=== PATIENT | female | born 1990 | race Caucasian/White ===

== ENCOUNTER 2018-09-14 16:24 | Outpatient (REF) | payer OTHER, SELFPAY ==
--- NOTE | 2018-09-14 13:00 | PAPFT_PTH ---
PATIENT: Abbie Hernandez LOC: [facility] U#:[id number] AGE/SX: 28/F ROOM: RE09/14/[address]: GOKUL Wiggins : 1990 BED: DIS: 09/14/2018 SPEC #: [id number] RECD: 09/17/18 17:43 STATUS: DEVIKA REAleksandar #: [id number] SONIDO: 09/14/18 13:[address]: Bryanna Horta DEPT: [facility] Cytology RECD BY: Jada Jarrett ENTERED: 09/17/18 17:43 SP TYPE: PAPFT OTHR DR: Octavia Navarro Tissues: 1 - CX/ENDOCX FOR PAP SMEARS Procedures: PAP THIN PREP/[facility] Screening Comments: [id number] (UNSATISFACTORY FOR EVALUATION
[2018-09-17 16:07] LABS: Chlamydia Result Negative; GC Result Negative
== END 2018-09-14 16:44 ==
LOC: LBN 16:24
PROVIDERS: PCP Family Medicine; Visit Provider Nurse Practitioner Family
DX: Z11.3 Encounter for screening for infections with a predominantly sexual mode of transmission (principal); Z12.4 Encounter for screening for malignant neoplasm of cervix; Z11.51 Encounter for screening for human papillomavirus (HPV)
CPT/HCPCS: 87491; 87591; 88142; 87624

== ENCOUNTER 2018-12-19 16:12 | Outpatient (REF) | payer OTHER, SELFPAY ==
--- NOTE | 2018-12-19 15:00 | PAPFT_PTH ---
PATIENT: Abbie Hernandez LOC: [facility] U#:[id number] AGE/SX: 28/F ROOM: RE12/19/[address]: Gretel Dunn NP : 1990 BED: DIS: 12/19/2018 SPEC #: [id number] RECD: 12/19/18 18:05 STATUS: DEVIKA BIANCHI #: [id number] SONIDO: 12/19/18 15:[address]: Gretel Dunn NP DEPT: [facility] Cytology RECD BY: Jada Jarrett ENTERED: 12/19/18 18:06 SP TYPE: PAPFT OTHR DR: Octavia Navarro Tissues: 1 - CX/ENDOCX FOR PAP SMEARS Procedures: PAP THIN PREP/[facility] Screening HPV DNA PROBE Comments: [id number] (CHLAMYDIA/GC)
[2018-12-20 13:27] LABS: Chlamydia Result Negative; GC Result Negative; Specimen Description SEE COMMENTS
== END 2018-12-19 16:32 ==
LOC: LBN 16:12
PROVIDERS: PCP Family Medicine; Visit Provider Nurse Practitioner Women's Health
DX: R31.9 Hematuria, unspecified (principal); Z11.3 Encounter for screening for infections with a predominantly sexual mode of transmission; Z12.4 Encounter for screening for malignant neoplasm of cervix; Z11.51 Encounter for screening for human papillomavirus (HPV)
CPT/HCPCS: 87491; 87591; 88142; 87086; 87624

== ENCOUNTER 2019-04-19 08:03 | Outpatient (REF) | payer OTHER, SELFPAY ==
[2019-04-19 12:42] LABS: Glucose 87 mg/dL (70-100); TSH (W/Ref FT4) 3.14 uIU/mL (0.358-3.74)
== END 2019-04-19 08:23 ==
LOC: NCHCN 08:03
PROVIDERS: PCP Family Medicine; Visit Provider Family Medicine
DX: Z00.00 Encounter for general adult medical examination without abnormal findings (principal); Z13.1 Encounter for screening for diabetes mellitus; E66.9 Obesity, unspecified
CPT/HCPCS: 82947; 84443

== ENCOUNTER 2020-05-18 02:04 | Outpatient (CLI) | payer OTHER, SELFPAY ==
[2020-05-18 10:24] LABS: Hemoglobin A1C 5.3 % (3.8-5.6)
== END 2020-05-18 02:24 ==
PROVIDERS: PCP Family Medicine; Visit Provider Nurse Practitioner Women's Health
DX: R63.5 Abnormal weight gain (principal); E66.9 Obesity, unspecified
CPT/HCPCS: 36415; 83036; 84443

== ENCOUNTER 2022-12-23 12:55 | Outpatient (REF) | payer BC, SELFPAY | END 2022-12-23 12:56 | disposition home or self-care (01) | LOC: NCHCN 12:55 | PROVIDERS: PCP Family Medicine; Visit Provider Physician Assistant | DX: N39.0 Urinary tract infection, site not specified (principal) | CPT/HCPCS: 87086 ==

== ENCOUNTER 2023-05-26 00:07 | Outpatient (CLI) | payer BC, SELFPAY ==
--- NOTE | 2023-05-26 08:15 | DI.MAMMO_ITS ---
Exam(s) MAMMO SCREENING EXAM: MAMMO SCREENING CLINICAL HISTORY: screening,Z12.39. TECHNIQUE: Bilateral full field digital CC and MLO mammographic images were obtained with 3D tomosyn thesis and utilizing computer aided detection (CAD). COMPARISON: None. This is a baseline mammogram on this 33-year-old patient. Family history. FINDINGS: The fibroglandular pattern is predominately fatty. There are no CAD designations There are no spiculated masses nor malignant appearing microcalcification groups. There is no significant architectural distortion nor skin thickening-retraction. IMPRESSION: No radiographic evidence of malignancy. BI-RADS Category 1 - Negative Breast Density - Category A - Almost entirely fatty Breast density Category C or D implies that the patient has dense breast tissue. Dense breast tissue can make it harder to find cancer on a mammogram. Dense breast tissue is also associated with an incr eased risk of breast cancer. This information about the result of the mammogram report was provided to the patient to raise their awareness. Use this report when you speak with the patient about their risks for breast cancer, which includes their family history. At that time, you may recommend additional screening tests (Ultrasoun d or MRI) as these tests may add significant information. A negative radiographic report should not delay biopsy if a dominant or clinically suspicious mass is present. Up to ten percent of cancers are not identified on mammography. A negative report may reinforce clinical impression. Adenosis and dense breasts may obscure an underlying neoplasm. False positive reports average 6 to 10%. Patient will receive a letter notifying them of these results.
== END 2023-05-26 00:27 ==
LOC: DI 00:07
PROVIDERS: PCP Family Medicine; Visit Provider Nurse Practitioner Women's Health
DX: Z12.31 Encounter for screening mammogram for malignant neoplasm of breast (principal); Z80.3 Family history of malignant neoplasm of breast
CPT/HCPCS: 77063; 77067

== ENCOUNTER 2023-08-07 18:38 | Outpatient (REF) | payer BC, SELFPAY ==
[2023-08-07 21:21] LABS: Abs Immature Grans 0.03 10^3/uL (0.0-0.06); Absolute Basophil Count 0.06 10^3/uL (0.0-0.2); Absolute Eosinophil Count 0.19 10^3/uL (0.0-0.7); Absolute Lymphocyte Count 2.09 10^3/uL (1.2-3.4); Absolute Monocyte Count 0.57 10^3/uL (0.1-0.8); Absolute Neutrophil Count 3.66 10^3/uL (1.2-6.7); Basophils % 0.9; Eosinophils % 2.9; HCT 40.4 % (36.0-46.0); HGB 13.2 g/dL (11.2-15.7); Immature Grans % 0.5; Lymphocytes % 31.7; MCH 30.3 pg (27.0-33.0); MCHC 32.7 % (32.0-36.0); MCV 93 fL (80-95); MPV 10.5 fL (8.0-11.0); Monocytes % 8.6; Neutrophils % 55.4; Platelet Count 320 10^3/uL (130-400); RBC 4.36 10^6/uL (3.93-5.22); RDW 12.9 % (11.7-14.6); RDW-SD 44.6 fL
[2023-08-07 21:24] LABS: ESR 28 mm/hr (0-20)
[2023-08-07 21:48] LABS: ALT 31 U/L (14-59); AST 23 U/L (15-37); Albumin 3.8 g/dL (3.4-5.0); Alkaline Phosphatase 101 U/L (46-116); Anion Gap 8.1 mmol/L (3-11); BUN 15 mg/dL (7-18); Bilirubin, Total 0.2 mg/dL (0.2-1.0); CO2 27.9 mmol/L (21.0-32.0); CREATININE 0.8 mg/dL (0.55-1.02); Calcium 10.1 mg/dL (8.5-10.1); Chloride 102 mmol/L (98-107); Estimated GFR 98.48 (mL/min/1.73m2); Glucose 90 mg/dL (74-106); Potassium 3.8 mmol/L (3.5-5.1); Sodium 138 mmol/L (136-145); Total Protein 7.6 g/dL (6.4-8.2)
== END 2023-08-07 18:39 | disposition home or self-care (01) ==
LOC: LBN 18:38
PROVIDERS: PCP Family Medicine; Visit Provider Nurse Practitioner Family
DX: K57.92 Diverticulitis of intestine, part unspecified, without perforation or abscess without bleeding (principal); R70.0 Elevated erythrocyte sedimentation rate
CPT/HCPCS: 80053; 85652; 85025

== ENCOUNTER 2024-04-23 05:11 | Outpatient (CLI) | payer BC, SELFPAY ==
[2024-04-23 13:13] LABS: HCT 39.5 % (36.0-46.0); MCHC 32.9 % (32.0-36.0); MCV 91 fL (80-95); MPV 9.6 fL (8.0-11.0); Platelet Count 307 10^3/uL (130-400); RBC 4.33 10^6/uL (3.93-5.22); RDW 12.9 % (11.7-14.6); RDW-SD 43.2 fL; WBC 6.93 10^3/uL (4.4-10.8)
[2024-04-23 14:28] LABS: ALT 65 U/L (14-59); AST 31 U/L (15-37); Albumin 3.7 g/dL (3.4-5.0); Alkaline Phosphatase 103 U/L (46-116); Anion Gap 10.2 mmol/L (3-11); BUN 11 mg/dL (7-18); Bilirubin, Total 0.3 mg/dL (0.2-1.0); C-Reactive Protein 1.09 mg/dL (<or=0.5); CO2 25.8 mmol/L (21.0-32.0); CREATININE 0.9 mg/dL (0.55-1.02); Chloride 106 mmol/L (98-107); Glucose 89 mg/dL (74-106); Magnesium 1.8 mg/dL (1.8-2.4); Potassium 3.9 mmol/L (3.5-5.1); Sodium 142 mmol/L (136-145); TSH (W/Ref FT4) 1.76 uIU/mL (0.36-3.74)
[2024-04-24 09:24] LABS: IgA 321 mg/dL (85-499); IgG 1018 mg/dL (610-1616)
[2024-04-24 11:41] LABS: Tissue Transglutaminase IgA 7.3 CU (<20.0)
[2024-04-25 12:35] LABS: Tissue Transglutaminase Ab IgG 4.8 U/mL
== END 2024-04-23 05:12 | disposition home or self-care (01) ==
LOC: LBO 05:11
PROVIDERS: PCP Family Medicine; Visit Provider Physician Assistant Medical
DX: K52.9 Noninfective gastroenteritis and colitis, unspecified (principal)
CPT/HCPCS: 36415; 80053; 82533; 82784; 85027; 86364; 83735; 84443; 86140

== ENCOUNTER 2024-05-28 08:06 | Outpatient (REF) | payer BC, SELFPAY ==
--- OUTSIDE RECORDS SUMMARY | 2024-05-28 08:09 | XMS_ITS | Continuity of Care Document ---
Author Organization [facility] Address [address] [place] [address] Care Team Providers Care Rn Camp Name Role Phone Sharon Concepcion Primary Care Physician [facility]counter [facility] Date(s): 10/04/23 - 10/04/[address] [address] Encounter Diagnosis Upper respiratory infection, acute(Discharge Diagnosis) - 10/04/23 Discharge Disposition: Home or Self Care Attending Physician: Maicol Rashid MD Admitting Physician: Maicol Rashid MD Allergies, Adverse Reactions, Alerts No Known Medication Allergies Assessment and Plan Extracted from: Title:Clinical Document Author:Fang Burrell te:10/04/23 Diagnosis: 1. Upper respirat ory infection, acute Comment: Diagnosis: Cough Comment: Functional Status 10/04/23 Family Member Travel History No recent t ravel Recent Travel History No recent travel Other exposure to Infectious Disease Non e Immunizations Given and Recorded Vaccine Date Status Refusal Reason SARS-CoV-2 (COVID-19) mRNA-1273 vaccine 01/20/21 R ecorded SARS-CoV-2 (COVID-19) mRNA-1273 vaccine 12/23/20 R ecorded pneumococcal 23-polyvalent vaccine 02/13/09 Record ed influenza virus vaccine, inactivated 09/25/08 Griffin rded influenza virus vaccine, inactivated 09/24/07 Griffin rded Medications No Known Medications Results Laboratory List Name Date SARS-CoV-2 (COVID-19)/Flu/RSV (GeneXpert ) 10/04/23 Most recent to oldest [Reference Range]: 1 Employed in healthcare? Unknown *NA* (10/04/23 2:00 AM) Symptomatic as defined by CDC? Unknown *NA* (10/04/23 2:00 AM) Hospitalized due to COVID-19? Unknown *NA* (10/04/23 2:00 AM) In ICU? Unknown *NA* (10/04/23 2:00 AM) Group care resident? Unknown *NA* (10/04/23 2:00 AM) status? Unknown *NA* (10/04/23 2:00 AM) SARS-CoV-2(Covid19)PCR(GXpert COVFLURSV) [Negative] Negative (10/04/23 2:00 AM) Flu A (GXpert COVFLURSV) [Negative] Nega tive (10/04/23 2:00 AM) RSV (GXpert COVFLURSV) [Negative] Negati ve (10/04/23 2:00 AM) Flu B (GXpert COVFLURSV) [Negative] Nega tive (10/04/23 2:00 AM) Vital Signs Most recent to oldest [Reference Range]: 1 2 Temperature Tympanic [36.6-38.1 Deg C] 3 6.4 Deg C *LOW* (10/04/23 1:51 AM) Peripheral Pulse Rate [60-100 bpm] 105 b pm *HI* (10/04/23 1:58 AM) 128 bpm *HI* (10/04/23 1:51 AM) Respiratory Rate [12-24 br/min] 20 br/mi n (10/04/23 1:51 AM) Blood Pressure [90-140/60-90 mmHg] 157/9 5mmHg *HI* (10/04/23 1:51 AM) Mean Arterial Pressure, Cuff [70-110 mmH g] 116 mmHg *HI* (10/04/23 1:51 AM) Weight Dosing 120.00 kg (10/04/23 1:56 AM) Weight Estimated 120.00 kg (10/04/23 1:51 AM) Height 165.000 cm (10/04/23 1:56 AM) Height/Length Estimated 165.000 cm (10/04/23 1:51 AM) Social History Social History Type Response Tobacco Never tobacco user T obacco Use:. Sex Female Hospital Discharge Instructions Patient Education 10/04/2023 01:22:13 Upper Respiratory Infection, Adult, Sfrj-cv-Nalr Upper Respiratory Infection, Adult An upper respiratory infection (URI) affects the nose, throat, and upper airways that lead to the lungs. The most common type of URI is often called the common cold. URIs usually get better on their own, without medical treatment. What are the causes? A URI is caused by a germ (virus). You may catch these germs by: ??? Breathing in droplets from an infected person's cough or sneeze. ??? Touching something that has the germ on it (is contaminated) and then touching your mouth, nose, or eyes. What increases the risk? You are more likely to get a URI if: ??? You are very young or very old. ??? You have close contact with others, such as at work, school, or a health care facility. ??? You smoke. ??? You have long-term (chronic) heart or lung disease. ??? You have a weakened disease-fighting system (immune system). ??? You have nasal allergies or asthma. ??? You have a lot of stress. ??? You have poor nutrition. What are the signs or symptoms? Runny or stuffy (congested) nose. ??? Cough. ??? Sneezing. ??? Sore throat. ??? Headache. ??? Feeling tired (fatigue). ??? Fever. ??? Not wanting to eat as much as usual. ??? Pain in your forehead, behind your eyes, and over your cheekbones (sinus pain). ??? Muscle aches. ??? Redness or irritation of the eyes. ??? Pressure in the ears or face. How is this treated? URIs usually get better on their own within 7???10 days. Medicines cannot cure URIs, but your doctor may recommend certain medicines to help relieve symptoms, such as: ??? Guob-wta-mhlbhre cold medicines. ??? Medicines to reduce coughing (cough suppressants). Coughing is a type of defense against infection that helps to clear the nose, throat, windpipe, and lungs (respiratory system). Take these medicines only as told by your doctor. ??? Medicines to lower your fever. Follow these instructions at home: Activity ??? Rest as needed. ??? If you have a fever, stay home from work or school until your fever is gone, or until your doctor says you may return to work or school. ??? You should stay home until you cannot spread the infection anymore (you are not contagious). ??? Your doctor may have you wear a face mask so you have less risk of spreading the infection. Relieving symptoms ??? Rinse your mouth often with salt water. To make salt water, dissolve ?1 tsp (3???6 g) of salt in 1 cup (237 mL) of warm water. ??? Use a cool-mist humidifier to add moisture to the air. This can help you breathe more easily. Eating and drinking ??? Drink enough fluid to keep your pee (urine) pale yellow. ??? Eat soups and other clear broths. General instructions ??? Take diwt-cxt-ycoakvo and prescription medicines only as told by your doctor. ??? Do not smoke or use any products that contain nicotine or tobacco. If you need help quitting, ask your doctor. ??? Avoid being where people are smoking (avoid secondhand smoke). ??? Stay up to date on all your shots (immunizations), and get the flu shot every year. ??? Keep all follow-up visits. How to prevent the spread of infection to others ??? Wash your hands with soap and water for at least 20 seconds. If you cannot use soap and water, use hand scrap iron cutter. ??? Avoid touching your mouth, face, eyes, or nose. ??? Cough or sneeze into a tissue or your sleeve or elbow. Do not cough or sneeze into your hand orinto the air. Contact a doctor if: ??? You are getting worse, not better. ??? You have any of these: ??? A fever or chills. ??? Brown or red mucus in your nose. ??? Yellow or brown fluid (discharge)coming from your nose. ??? Pain in your face, especially when you bend forward. ??? Swollen neck glands. ??? Pain when you swallow. ??? White areas in the back of your throat. Get help right away if: ??? You have shortness of breath that gets worse. ??? You have very bad or constant: ??? Headache. ??? Ear pain. ??? Pain in your forehead, behind your eyes, and over your cheekbones (sinus pain). ??? Chest pain. ??? You have long-lasting (chronic) lung disease along with any of these: ??? Making high-pitched whistling sounds when you breathe, most often when you breathe out (wheezing). ??? Long-lasting cough (more than 14 days). ??? Coughing up blood. ??? A change in your usual mucus. ??? You have a stiff neck. ??? You have changes in your: ??? Vision. ??? Hearing. ??? Thinking. ??? Mood. These symptoms may be an emergency. Get help right away. Call 911. ??? Do not wait to see if the symptoms will go away. ??? Do not drive yourself to the hospital. Summary ??? An upper respiratory infection (URI) is caused by a germ (virus). The most common type of URI is often called the common cold. ??? URIs usually get better within 7???10 days. ??? Take oaie-vew-haigofx and prescription medicines only as told by your doctor. This information is not intended to replace advice given to you by your health care provider. Make sure you discuss any questions you have with your health care provider. Document Revised: 06/01/2022 Document Reviewed: 06/01/2022 [employer] Patient Education ?? 2022 [employer]. Follow Up Care 10/04/2023 01:51:11 With:Follow up with primary care provider Address: When:3 to 5 days only if needed Physician Emergency department Note * Maicol Rashid MD: PERFORM Event Display: ED Note Physician Authored Date: [id number] SHAHRIAR MURRAY :1990 Age:33 years Sex:Female Visit Date:10/04/2023 Basic Information Time Seen: Maicol Rashid MD / 10/04/2023 01:51 Chief Complaint PT came to ED with C/O cough and nasal congestion for 2 weeks. PT states tonight she had trouble taking a deep breath History Of Present Illness: Patient has had cold symptoms for several weeks and is now??having more into her chest.?? A lot of coughing and feeling short of breath. ??Used her inhaler as she has asthma but did not feel it helps. ??Has not felt she has had a fever. ??No vomiting or diarrhea. ??No sinus pain currently. Review of Systems: No fever or rash. ??No headache. Physical Exam Vitals & Measurements T:??36.4?C ??(Tympanic)?? HR:??105??(Peripheral)?? RR:??20?? BP:??157/95?? SpO2:??98%?? HT:??165.000??cm?? WT:??120.00??kg??(Estimated)?? O2 Therapy:??Room air?? Alert cooperative healthy-appearing overweight??frequent wet cough. ??HEENT normocephalic atraumatic. ??Extraocular movements are intact no conjunctivitis. ??Left TM and canal are clear. ??Right is occluded with cerumen.?? Nose??is clear oropharynx is clear neck is supple without lymphadenopathy.??Lungs have some scattered rhonchi??but no wheezing good airflow. ??No retractions??and no prolongedexpiratory phase.?? Abdomen soft nontender nondistended. ??Skin warm and dry.?? Normal neurologicalexam. Medical Decision Making: Chest 2 view as read by me shows no acute finding ?? COVID flu RSV swab pending.?? Patient may??continue to take ezvl-upj-wviikqy cold medicines as desired.?? No evidence for asthma??attack currently. Procedure No Qualifying Data Assessment/Plan 1.??Upper respiratory infection, acute??J06.9 Orders: SARS-CoV-2 (COVID-19)/Flu/RSV (GeneXpert), Nasal Swab, Stat Collect, 10/04/23 1:57:00 EST, Once, Nurse collect, Print Label, Unknown, Unknown, Unknown, Unknown, Unknown, Unknown XR Chest 2 Views, 10/04/23 1:57:00 EST, Stat, Reason: dyspnea, Transport Mode: Stretcher, Exam to be performed outside organization? Patient Education Upper Respiratory Infection, Adult, Sywe-hz-Asjz Follow Up With When Contact Information Follow up with primary care provider Within 3 to 5 days, only if needed Additional Instructions: Problem List/Past Medical History Ongoing Morbid obesity Historical No qualifying data Allergies No Known Medication Allergies Social History Alcohol Never Electronic Cigarette/Vaping Electronic Cigarette Use: Never. Substance Use Never Tobacco Never tobacco user Tobacco Use:. Electronically Signed on 10/04/23 02:23 AM Maicol Rashid MD Emergency department Discharge instructions * Maicol Rashid MD: PERFORM Event Display: ED Discharge Information Authored Date: [id number] FER MURRAYGRECIA Iglesias :1990 Age:33 years Sex:Female Visit Date:10/04/2023 Discharge Instructions We would like to thank you for allowing us to assist you with your healthcare needs. The following includes patient education materials and information regarding your injury/illness. Diagnosis from Today's Visit Upper respiratory infection, acute Discharge Vitals Temperature??(Tympanic) 97.5 ??F (36.4 ??C) Heart Rate??(Peripheral) 105 Respiratory Rate?? 20 Blood Pressure?? 157/95?? Height?? 64.96 in (165.000 cm) Weight??(Estimated) 264.60 lb (120.00 kg) Allergies No Known Medication Allergies What to Do Next You Need to Schedule the Following Appointments Follow Up with??Follow up with primary care provider When:??Within 3 to 5 days, only if needed You were treated today on an emergency basis; it may be long to contact your primary care provider to notify them of your visit today. You may have been referred to your regular doctor or a specialist, please follow up as instructed. If your condition worsens or you can't get in to see the doctor, contact the Emergency Department. Education Materials Upper Respiratory Infection, Adult An upper respiratory infection (URI) affects the nose, throat, and upper airways that lead to the lungs. The most common type of URI is often called the common cold. URIs usually get better on their own, without medical treatment. What are the causes? A URI is caused by a germ (virus). You may catch these germs by: ? Breathing in droplets from an infected person's cough or sneeze. ? Touching something that has the germ on it (is contaminated) and then touching your mouth, nose, oreyes. What increases the risk? You are more likely to get a URI if: ? You are very young or very old. ? You have close contact with others, such as at work, school, or a health care facility. ? You smoke. ? You have long-term (chronic) heart or lung disease. ? You have a weakened disease-fighting system (immune system). ? You have nasal allergies or asthma. ? You have a lot of stress. ? You have poor nutrition. What are the signs or symptoms? Runny or stuffy (congested) nose. ? Cough. ? Sneezing. ? Sore throat. ? Headache. ? Feeling tired (fatigue). ? Fever. ? Not wanting to eat as much as usual. ? Pain in your forehead, behind your eyes, and over your cheekbones (sinus pain). ? Muscle aches. ? Redness or irritation of the eyes. ? Pressure in the ears or face. How is this treated? URIs usually get better on their own within 7???10 days. Medicines cannot cure URIs, but your doctor may recommend certain medicines to help relieve symptoms, such as: ? Hixi-iex-ffbxkqw cold medicines. ? Medicines to reduce coughing (cough suppressants). Coughing is a type of defense against infection that helps to clear the nose, throat, windpipe, and lungs (respiratory system). Take these medicinesonly as told by your doctor. ? Medicines to lower your fever. Follow these instructions at home: Activity ? Rest as needed. ? If you have a fever, stay home from work or school until your fever is gone, or until your doctor says you may return to work or school. ? You should stay home until you cannot spread the infection anymore (you are not contagious). ? Your doctor may have you wear a face mask so you have less risk of spreading the infection. Relieving symptoms ? Rinse your mouth often with salt water. To make salt water, dissolve ?1 tsp (3???6 g) of salt in 1 cup (237 mL) of warm water. ? Use a cool-mist humidifier to add moisture to the air. This can help you breathe more easily. Eating and drinking ? Drink enough fluid to keep your pee (urine) pale yellow. ? Eat soups and other clear broths. General instructions ? Take ljux-bja-xzaqtec and prescription medicines only as told by your doctor. ? Do not smoke or use any products that contain nicotine or tobacco. If you need help quitting, ask your doctor. ? Avoid being where people are smoking (avoid secondhand smoke). ? Stay up to date on all your shots (immunizations), and get the flu shot every year. ? Keep all follow-up visits. How to prevent the spread of infection to others ? Wash your hands with soap and water for at least 20 seconds. If you cannot use soap and water, use hand scrap iron cutter. ? Avoid touching your mouth, face, eyes, or nose. ? Cough or sneeze into a tissue or your sleeve or elbow. Do not cough or sneeze into your hand or into the air. Contact a doctor if: ? You are getting worse, not better. ? You have any of these: ? A fever or chills. ? Brown or red mucus in your nose. ? Yellow or brown fluid (discharge)coming from your nose. ? Pain in your face, especially when you bend forward. ? Swollen neck glands. ? Pain when you swallow. ? White areas in the back of your throat. Get help right away if: ? You have shortness of breath that gets worse. ? You have very bad or constant: ? Headache. ? Ear pain. ? Pain in your forehead, behind your eyes, and over your cheekbones (sinus pain). ? Chest pain. ? You have long-lasting (chronic) lung disease along with any of these: ? Making high-pitched whistling sounds when you breathe, most often when you breathe out (wheezing). ? Long-lasting cough (more than 14 days). ? Coughing up blood. ? A change in your usual mucus. ? You have a stiff neck. ? You have changes in your: ? Vision. ? Hearing. ? Thinking. ? Mood. These symptoms may be an emergency. Get help right away. Call 911. ? Do not wait to see if the symptoms will go away. ? Do not drive yourself to the hospital. Summary ? An upper respiratory infection (URI) is caused by a germ (virus). The most common type of URI is often called the common cold. ? URIs usually get better within 7???10 days. ? Take vhzx-axr-kttoqdh and prescription medicines only as told by your doctor. This information is not intended to replace advice given to you by your health care provider. Make sure you discuss any questions you have with your health care provider. Document Revised: 06/01/2022 Document Reviewed: 06/01/2022 [employer] Patient Education ?? 2022 [employer] Patient/Project Financial Analyst Signature Patient Name:SHAHRIAR MURRAY I have received this information and my questions have been answered. Patient/Project Financial Analyst Name: Patient/Project Financial Analyst Signature: Relationship to Patient: Witness Name/Signature: Date: Electronically Signed on: 10/04/2023 02:23 ESTSigned by:PMN Discharge summary * Fang Burrell: PERFORM Event Display: Discharge Note Authored Date: * Fang Burrell: PERFORM Event Display: Discharge Note Authored Date: Diagnosis: 1. Upper respiratory infection, acute Comment: Diagnosis: Cough Comment: Electronically Signed on 10/04/23 07:17 AM Fang Burrell Patient Care team information Care Team Personnel Name: Sharon Concepcion PA-C Position: PowerChart View Only Member Role: Informed Provider Address: Address: [facility] [address] [place] [address]- [place] Name: Korey Maldonado RN Position: Nurse Member Role: ED Nurse Name: Maicol Rashid MD Position: Physician Member Role: Attending Physician Address: Address: [address] Care Team Related Persons Name: VALENTINA GAGE JR Address: Home [address] [place], [place] [id number] Address: Mailing [address] [place] [phone] Name: TACO GAGE Address: [address] [phone] Name: MILTON MURRAY
--- OUTSIDE RECORDS SUMMARY | 2024-05-28 08:09 | XMS_ITS | Clinical Summary ---
Author Organization [facility] Address [address] [place] [address] Care Team Providers Care English Division Chair Name Role Phone Unknown, Provider Primary Care Provider Encounters Date Type Department Care Team Description 04/23/2024 Lab Requisition [facility] Pathology & Laboratory [address] [address] Outr Resulting Lab, Provider 04/23/2024 Lab Requisition [facility] Pathology & Laboratory [address] [address] Outr Resulting Lab, Provider from Last 3 Months Social History Tobacco Use Types Packs/Day Years Used Date Smoking Tobacco: Never Assessed Sex and Gender Information Value Date Recorded Sex Assigned at Not on file Gender Identity Not on file Sexual Orientation Not on file Plan of Treatment Health Maintenance Due Date Last Done Comments Hepatitis C Screen 1990 Hepatitis B Vaccine (1 of 3 - 19+ 3-dose series) 05/21 COVID-19 Vaccine ( season) 2023 Procedures Procedure Name Priority Date/Time Associated Diagnosis Comments IGA Routine 04/23/2024 13:00 EDT IGG Routine 04/23/2024 13:00 EDT CORTISOL Routine 04/23/2024 13:00 EDT TISSUE TRANSGLUTAMINASE ANTIBODY, IGA Routine 04/23/2024 13:00 EDT from Last 3 Months Results * TISSUE TRANSGLUTAMINASE ANTIBODY, IGA (04/23/2024 13:00 EDT) Tissue Transglutaminase Antibody, IgA 7.3 <20.0 CU 04/24/2024 11:36 EDT [facility] Comment: Negative: <20.0 CU Weak Positive: 20.0-30.0 CU Positive: >30.0 CU Results were obtained with the [employer] Flash h-tTG IgA chemiluminescent immunoassay. Values obtained with different manufacturers' assay methods may not be used interchangeably. Blood VENOUS BLOOD / Unknown 04/23/2024 13:00 EDT 04/23/2024 21:48 EDT Provider Outr Resulting Lab IMMUNOLOGY A ND SEROLOGY ORDERABLES Performing Organization Address [facility]/ZIP Co de Phone Number [facility] [address] [place] [id number] * IGA (04/23/2024 13:00 EDT) IgA 321 85 - 499 mg/dL 04/24/2024 9:18 EDT [facility] Blood VENOUS BLOOD / Unknown 04/23/2024 13:00 EDT 04/23/2024 21:51 EDT Provider Outr Resulting Lab CHEMISTRY & BLOOD GAS ORDERABLES Performing Organization Address [facility] Co de Phone Number [facility] [address] [place] [phone] * IGG (04/23/2024 13:00 EDT) IgG 1,018 610 - 1,616 mg/dL 04/24/2024 9:18 EDT [facility] Blood VENOUS BLOOD / Unknown 04/23/2024 13:00 EDT 04/23/2024 21:51 EDT Provider Outr Resulting Lab CHEMISTRY & BLOOD GAS ORDERABLES Performing Organization Address [facility] Co de Phone Number [facility] [address] [place] [phone] * CORTISOL (04/23/2024 13:00 EDT) Cortisol 5 See Note ug/dL 04/23/2024 22:37 EDT [facility] Comment: NOTE: Reference Ranges (from OCD IFU): Collected Before 10:00 AM: ??4 - 23 ug/dL Collected After 5:00 PM: ?2 - 14 ug/dL The results of this assay can be falsely elevated due to the consumption of Biotin. Blood VENOUS BLOOD / Unknown 04/23/2024 13:00 EDT 04/23/2024 21:48 EDT Provider Outr Resulting Lab CHEMISTRY & BLOOD GAS ORDERABLES [facility] [address] [place] [address] from Last 3 Months Care Teams English Division Chair Relationship Specialty Start Date End Date Unknown, Provider, PCP - General 09/20/15
--- OUTSIDE RECORDS SUMMARY | 2024-05-28 08:09 | XMS_ITS | Referral Summary ---
Author Organization [facility] Address [address] [place] [address] Care Team Providers Care Ward Maid Name Role Phone Unknown, Provider Primary Care Provider Encounters Date Type Department Care Team Description 04/23/2024 Lab Requisition [facility] Pathology & Laboratory [address] [address] Outr Resulting Lab, Provider 04/23/2024 Lab Requisition [facility] Pathology & Laboratory [address] [address] Outr Resulting Lab, Provider from Last 3 Months Social History Tobacco Use Types Packs/Day Years Used Date Smoking Tobacco: Never Assessed Sex and Gender Information Value Date Recorded Sex Assigned at Not on file Gender Identity Not on file Sexual Orientation Not on file Plan of Treatment Not on file Procedures Procedure Name Priority Date/Time Associated Diagnosis Comments IGA Routine 04/23/2024 13:00 EDT IGG Routine 04/23/2024 13:00 EDT CORTISOL Routine 04/23/2024 13:00 EDT TISSUE TRANSGLUTAMINASE ANTIBODY, IGA Routine 04/23/2024 13:00 EDT from Last 3 Months Results * TISSUE TRANSGLUTAMINASE ANTIBODY, IGA (04/23/2024 13:00 EDT) Tissue Transglutaminase Antibody, IgA 7.3 <20.0 CU 04/24/2024 11:36 EDT [facility] Comment: Negative: <20.0 CU Weak Positive: 20.0-30.0 CU Positive: >30.0 CU Results were obtained with the [employer] Flash h-tTG IgA chemiluminescent immunoassay. Values obtained with different manufacturers' assay methods may not be used interchangeably. Blood VENOUS BLOOD / Unknown 04/23/2024 13:00 EDT 04/23/2024 21:48 EDT Provider Outr Resulting Lab IMMUNOLOGY A ND SEROLOGY ORDERABLES Performing Organization Address [facility]/ZIP Co de Phone Number [facility] [address] [place] [address] * IGA (04/23/2024 13:00 EDT) [facility] IgA 321 85 - 499 mg/dL 04/24/2024 9:18 EDT [facility] Blood VENOUS BLOOD / Unknown 04/23/2024 13:00 EDT 04/23/2024 21:51 EDT Provider Outr Resulting Lab CHEMISTRY & BLOOD GAS ORDERABLES Performing Organization Address [facility] Co de Phone Number [facility] [address] [place] [address] * IGG (04/23/2024 13:00 EDT) [facility] IgG 1,018 610 - 1,616 mg/dL 04/24/2024 9:18 EDT [facility] Blood VENOUS BLOOD / Unknown 04/23/2024 13:00 EDT 04/23/2024 21:51 EDT Provider Outr Resulting Lab CHEMISTRY & BLOOD GAS ORDERABLES Performing Organization Address [facility] Co de Phone Number [facility] [address], [place] [phone] * CORTISOL (04/23/2024 13:00 EDT) Pathologist [facility] Cortisol 5 See Note ug/dL 04/23/2024 22:37 EDT [facility] Comment: NOTE: Reference Ranges (from OCD IFU): Collected Before 10:00 AM: ??4 - 23 ug/dL Collected After 5:00 PM: ?2 - 14 ug/dL The results of this assay can be falsely elevated due to the consumption of Biotin. Blood VENOUS BLOOD / Unknown 04/23/2024 13:00 EDT 04/23/2024 21:48 EDT Provider Outr Resulting Lab CHEMISTRY & BLOOD GAS ORDERABLES [facility] [address] [place] [address] from Last 3 Months Care Teams Ward Maid Relationship Specialty Start Date End Date Unknown, Provider, PCP - General 09/20/15
--- OUTSIDE RECORDS SUMMARY | 2024-05-28 08:10 | XMS_ITS | Encounter Summary ---
Author Organization [facility] [place] [place] [address] Care Team Providers Care Laborer Vegetable Farm Name Role Phone Octavia Navarro MD Primary Care Provider [phone] Encounter Details Date Type Department Care Team (Late st Contact Info) Description 03/11/2015 External Results [place] [phone] Krystle Avila AUD [facility] [place] [address] Social History Tobacco Use Types Packs/Day Years Used Date Smoking Tobacco: Never Assessed Sex and Gender Information Value Date Recorded Sex Assigned at Not on file Gender Identity Not on file Sexual Orientation Not on file documented as of this encounter Plan of Treatment Upcoming Encounters Date Type Department Care Team (Latest Contact Info) Description 06/03/2024 12:00 PM EDT Hospital Encounter Operating Room Jo[address] [place] [phone] Constanza Douglass MD [facility] [place] [address] 06/03/2024 12:00 PM EDT - 06/03/2024 12:45 PM EDT Surgery Operating Room Joanada[address] [place] [phone] Constanza Douglass MD [facility] [place] [address] COLONOSCOPY, DIAGNOSTIC (WRVU 3.26) Scheduled Procedures Name Priority Associated Diagnoses Date/Ti me COLONOSCOPY, DIAGNOSTIC (WRVU 3.26) Chronic diarrhea Screen for colon cancer Adenoma of colon 06/03/2024 12:00 PM EDT documented as of this encounter Procedures Procedure Name Priority Date/Time Associated Diagnosis Comments AUDIOLOGY SCAN Routine 03/09/2015 documented in this encounter Results * Scan Doc: Audiology (03/09/2015) Krystle Avila AUD MEDIA MGR SCAN EXT ORDR/RSLT documented in this encounter Visit Diagnoses Not on filedocumented in this encounter Care Teams Laborer [employer]able Farm Relationship Specialty Start Date End Date Octavia Navarro MD [facility] [address] [place] [address] PCP - General 02/27/15 03/31/24 documented as of this encounter
--- OUTSIDE RECORDS SUMMARY | 2024-05-28 08:10 | XMS_ITS | Encounter Summary ---
Author Organization Health system Address [address] [place] [address] Care Team Providers Care Spouting Installer Name Role Phone Unavailable Primary Care Provider Unavailabl e Encounter Details Date Type Department Care Team (Late st Contact Info) Description 02/13/2013 Results Only [facility] - [facility] ([facility] [address] [place], [place] [phone] Octavia Mike MD [address] [phone] Social History Tobacco Use Types Packs/Day Years Used Date Smoking Tobacco: Never Assessed Sex and Gender Information Value Date Recorded Sex Assigned at Not on file Gender Identity Not on file Sexual Orientation Not on file documented as of this encounter Plan of Treatment Not on file documented as of this encounter Procedures Procedure Name Priority Date/Time Associated Diagnosis Comments PAP TEST- RESULT ONLY Routine 02/13/2013 0:00 EDT documented in this encounter Results * PAP TEST- RESULT ONLY (02/13/2013 0:00 EDT) Pathology Report: CYTOPATHOLOGY REPORT Reports generated via electronic interface contain original data; however they are lacking the format of the original report. Caution should be taken when reading/interpreti ng unformatted reports. Name: ? ABBIE HERNANDEZ ? Accession #: ? [id number] : ? 1990 (Age: 22) ??F ?Collect Date: ? 02/13/2013 Location: ? [facility] ? Receive Date: ? 02/15/2013 Provider: ?OCTAVIA MIKE MD Copy to: ? Specimen/Source: ?Pap Test, Cervix/Endocervix, ThinPrep Imaging System with manual evaluation Last Menstrual Period: ? 12/2012 unknown Menstrual/Pregnanc y Status: ? Irregular: periods ? SPECIMEN ADEQUACY ? Unsatisfactory for Evaluation, - insufficient numbers of squamous epithelial cells (less than 10% of expected cellularity) GENERAL CATEGORIZATION ? Specimen processed and examined, but unsatisfactory for evaluation of epithelial abnormality. Recommend repeat Pap test or further follow up, as clinically indicated. ? Document reviewed and electronically signed by: ? Katia Coker, CT(ASCP) ? Report Date: ??02/20/2013 13:44 End of Report [facility] 02/13/2013 02/15/2013 Octavia Mike MD PATHOLOGY ORDERABLES Performing Organization Address City/State/[facility] Co de Phone Number [facility] [address] [place] [address] documented in this encounter Visit Diagnoses Not on filedocumented in this encounter
--- OUTSIDE RECORDS SUMMARY | 2024-05-28 08:10 | XMS_ITS | Encounter Summary ---
Author Organization [facility] Address [facility] [place] [address] Care Team Providers Care Diamond Saw Operator Name Role Phone Sharon Concepcion Primary Care Provider + [phone] Reason for Visit * Consultation (Routine) - Authorized Specialty Diagnoses / Procedures Referred By Contac t Referred To Contact Gastroenterology Diagnoses Diverticulosis of intestine without perforation or abscess without bleeding Irritable bowel syndrome without diarrhea Sharon Concepcion PA [address] [place] [id number] [facility] [address] [place] [address] Referral ID Status Reason Start Date Expiration Date Visits Requested Visits Authorized [id number] Authorized Consult, Test & Treat PCP Updated and/or Approved 03/25/2024 09/25/2024 6 6 Encounter Details Date Type Department Care Team (Latest Contact Info) Description 04/16/2024 3:00 PM EDT TH Visit (TeleHealth) [place] [address] Gunjan Jennings PA [facility] [place] [address] Chronic diarrhea (Primary Dx); Diverticulitis of large intestine with perforation without bleeding; Left sided abdominal pain; Screen for colon cancer; Adenoma of colon Social History Tobacco Use Types Packs/Day Years Used Date Smoking Tobacco: Former Cigarettes Smokeless Tobacco: Never Tobacco Cessation:Counseling Given: Not Answered Sex and Gender Information Value Date Recorded Sex Assigned at Not on file Gender Identity Not on file Sexual Orientation Not on file documented as of this encounter Patient Instructions * Patient Instructions* Gunjan Jennings PA - 04/16/2024 3:00 PM EDT Blood work and stool studies a [facility] at your convenience - Please let us know when these are completed so we can request results Colonoscopy due in about 3 months - For procedure scheduling please call [phone]. - Schedule follow-up clinic visit with me (either in-person or telemedicine) about 2-4 weeks after these tests to review results. In the interim, I recommend the following to try and manage her symptoms while the above tests are being completed: Healthy Bowel Habits 1. Eat all of your meals and snacks at a predictable time each day. The bowel functions best when food is introduced at the same regular intervals. 2. Large meals can be harder for the system to digest - try eating 3-6 smaller meals throughout theday, rather than 1-2 huge meals. 3. Breakfast is the most important meal involved in bowel stimulation. Make sure you eat breakfast every day. 4. Make sure you are getting enough fiber in your system - either with high fiber foods or with fiber supplementation. 5. Keep caffeine to a minimum. Caffeine is a diuretic drawing fluid from your colon. 6. Exercise daily. Exercise increases colonic transit time. Bowel function is helped most when exercise is at a consistent daily time. 7. Stay hydrated with water or other non-caffeinated beverages free of sugar or artifical sugar. Fluid intake goal is ~6-8 glasses/day (caffeine and alcohol count as minus one in calculation). 8. Avoid or limit processed foods, foods high in added sugar, artificial sweeteners, fast foods andtrans fats. 9. Be sure to include prebiotic (banana, cocoa, eggplant, flaxseed, garlic, honey, onion, peas, whole grains) and probiotic foods (fermented meats, fermented vegs, kimchi, kombucha, miso, sauerkraut,plain yogurt without sugar added) in your diet. 10. Cut down on tobacco use and alcohol use - ideally, try to avoid these altogether 11. If abdominal bloating is an issue for you, try not to swallow air. Do not drink through a straw, gulp your food, or chew gum. Avoid carbonated beverages, chewing gum, and sucking on hard candies. Fiber The majority of Americans are not getting enough fiber. Fiber helps to form solid/soft stools that are easy to pass. It also helps to maintain a healthy bacterial balance in the intestines. General goal is 30 g fiber/day - some patients may require more or less. Fiber can be from multipledietary sources but generally supplementation is helpful. I prefer psyllium fiber supplements such as Metamucil (gummy or powder formulations are both good). Some patients prefer Benefiber (which is a wheat- based fiber). If you are gluten-free, some of our GF patients have responded well to [employer]'s Organic Psyllium Husk (on [employer]). Start with a low dose and increase dosing as tolerated (???start low and go slow?? ) Specifically I would recommend starting Metamucil at a low dosage such as one teaspoon a day for one week then gradually increasing by one teaspoon per week until no further benefit with increasing dosage is achieved. Most patients take between 2 and 6 teaspoons per day. It is important to stay well-hydrated when using fiber supplements. Fluid intake goal is ~6 glasses/day (caffeine and alcohol count as minus one in calculation). Some patients may get bloating when they start a fiber supplement. This generally goes away after 1-2 weeks of daily therapy. Try backing off to a lower dose or trying an alternate version (such as sweetener-free Metamucil or Citrucel) IBGard: I recommend trying over the counter IBGard - a peppermint oil supplement that helps to coat and soothe the lining of the intestine. Take as directed - I recommend 1-2 capsules daily or as needed. documented in this encounter Progress Notes * Gunjan Jennings PA - 04/16/2024 3:00 PM EDT Adult Gastroenterology New Patient Note Patient: Abbie Hernandez : 1990 Date of Service: 04/16/2024 Referring Provider: Sharon Concepcion Primary Care Provider: DAKOTA Ortega HPI History of present illness provided by patient and per personal review of EMR. Abbie Hernandez is a 33 y.o. female with a PMH significant for anxiety, asthma, and a PSH including appy (2008). Has had issues with stomach for years. Chronic diarrhea. At baseline, multiple BM daily. Urgency after eating. Some known food triggers - corn. However will often eat the same thing and sometime will have symptoms and sometimes not. Stool can be yellowish or greasy looking . Never black/white. Has not seen blood in the stool/on toilet paper. 3 years ago - hospitalized with diverticulitis and microtear. Dx on CT. Tx with abx. Multiple flares over the past year, one requiring abx and the other not. Last flare 2 weeks ago (noabx). Not dx with CT. Excruciating L sided pain. Fever. Will use Tylenol/ibuprofen, ADAT. Occasional GERD Nausea assd with Postprandial bloating Eczema earlier this year. Fatigue Has tried to identify food triggers but not tried a specific elimination diet. Current weight 260 lb. Hovers around this area. Taking magnesium supplement. Hx of borderline low TSH - not checked recently Hx childbirth - vaginal delivery +FH of GERD, diverticulitis. Possible CRC in MGF Former smoker. No vaping/nicotine. Medications Tried: Prior Testin06/2021 colonoscopy: 1 cm transverse SSA, diverticulosis 05/2021 CT A/P w contrast - diverticulitis with microperforation Subjective No past medical history on file. There are no problems to display for this patient. Current Outpatient Medications Medication Sig Dispense Refill citalopram (CeleXA) 40 mg tablet Take 1 tablet by mouth Daily at Noon. buPROPion XL (Wellbutrin XL) 150 mg XL 24 hr tablet Take 150 mg by mouth every morning. No current facility-administered medications for this visit. Not on File family history is not on file. Social History Tobacco Use Smoking status: Former Types: Cigarettes Smokeless tobacco: Never Review of Systems Constitutional: Positive for fatigue. Negative for unexpected weight change. Skin: Positive for rash. Neurological: Negative for headaches. I have reviewed 10+ systems with the patient. ROS is negative except for findings above and what ismentioned in HPI. Objective Physical Exam Constitutional: Appearance: Normal appearance. HENT: Head: Normocephalic and atraumatic. Nose: Nose normal. Eyes: Extraocular Movements: Extraocular movements intact. Pulmonary: Effort: Pulmonary effort is normal. Skin: Coloration: Skin is not jaundiced. Neurological: General: No focal deficit present. Mental Status: She is oriented to person, place, and time. Psychiatric: Mood and Affect: Mood normal. Behavior: Behavior normal. There were no vitals taken for this visit. Wt Readings from Last 3 Encounters: No data found for Wt There is no height or weight on file to calculate BMI. Laboratory results: CBC: No results found for: WBC, HGB, HCT, PLATELET LFTs: No results found for: ALKPHOS, BILITOT, BILIDIR, BILIINDIRECT, PROT, ALBUMIN, ALT, AST, GGT LIPASE: No results found for: LIPASE IRON STUDIES: No results found for: IRON, TIBC, FERRITIN Vitamin Studies: No results found for: [id number], VITAMIND A1c:No results found for: HA1C Thyroid: No results found for: TSH, K0SHBBB, TT4, THYROIDAB Celiac Studies: No results found for: TTGIGAAB, TTGIGAMAYO, TTGIGG, IGA, PARRISH, CRP Stool Studies: No results found for: FECALFATQUAL, CALPROTECTIN, STOOLCX, OVAPARA, HPYLORISTLAG, HPSA, GIARDIA, CAMPYAG, CDIFFTOXIN, CDIFFAG, CDIFFTOX, CDIFFPCRI, CRSPAG, SHIGATOXIN [facility] Radiographic studies: No results found. [facility] Endoscopic/GI Studies: N/A Assessment & Plan 1. Chronic diarrhea 2. Diverticulitis of large intestine with perforation without bleeding 3. Left sided abdominal pain 4. Screen for colon cancer 5. Adenoma of colon Patient is a 33 y.o. female presenting to GI clinic for evaluation of the above. She is well-appearing. Patient reports history of chronic diarrhea described as multiple loose bowel movements per day. Additionally, patient was diagnosed with diverticulitis with microperforation 05/2021. Since that time,she endorses flares of severe left- sided abdominal pain diagnosed as and treated as diverticulitis however repeat imaging has not been completed. 1. Chronic diarrhea Wide differential includes autoimmune enteritis versus infectious enteritis versus IBS. Given chronicity, we discussed the possibility of functional bowel disease. We discussed how factors including altered motility/spasm, scar tissue, visceral hypersensitivity/abnormal nerve signaling,stress/anxiety, altered delivery of digestive enzymes, gut bacterial balance, immune system activity, medication side effects and/or diet triggers can contribute to GI symptoms. We discussed the waxing and waning nature of functional bowel disease. We discussed that goals of care consist of improved quality of life Plan: - Will obtain general GI blood work and stool studies to assess for hormonal, autoimmune, dietary, infectious etiologies. - Colonoscopy (see below) - Healthy bowel habits. Discussed with patient, handout in AVS. - IgA; Future - IgG; Future - Tissue transglutaminase, IgA; Future - Comprehensive metabolic panel (non-fasting); Future - CRP, acute inflammation; Future - Hemogram; Future - Magnesium; Future - TSH Wood; Future - TTG Antibody IgG; Future - Cortisol; Future - C. Difficile Screen; Future - Fecal Fat Qualitative; Future - Giardia/Cryptosporidium Antigens ([facility]CGP/APD/[facility]); Future - Helicobacter pylori Antigen Stool; Future - Stool Culture Screen ([facility]CGP/APD/NL); Future - ENDOSCOPY CASE REQUEST: COLONOSCOPY, DIAGNOSTIC (WRVU 3.26) 2. Diverticulitis of large intestine with perforation without bleeding 3. Left sided abdominal pain Unclear if episodes of left-sided abdominal pain represent true acute diverticulitis versus functional spasm. I would recommend repeat CT imaging if/when patient has another symptom flare. I did advise patient to contact our clinic if she develops severe left-sided abdominal pain to help coordinatethis. 4. Screen for colon cancer 5. Adenoma of colon History of sessile serrated adenoma on 2020 colonoscopy, due for screening colonoscopy later this year. Patient is agreeable. - ENDOSCOPY CASE REQUEST: COLONOSCOPY, DIAGNOSTIC (WRVU 3.26) Orders Placed This Encounter Procedures ENDOSCOPY CASE REQUEST: COLONOSCOPY, DIAGNOSTIC (WRVU 3.26) C. Difficile Screen Giardia/Cryptosporidium Antigens ([facility]/CGP/APD/NL) Helicobacter pylori Antigen Stool Stool Culture Screen ([facility]/CGP/APD/NL) IgA IgG Tissue transglutaminase, IgA Comprehensive metabolic panel (non-fasting) CRP, acute inflammation Hemogram Magnesium TSH Wood TTG Antibody IgG Cortisol Fecal Fat Qualitative Patient voiced appropriate questions and concerns which were addressed to their satisfaction. Patient verbalized understanding and agrees with plan as outlined above. They understand to contact GI clinic with further questions, or if they develop new/worsening GI symptoms. Follow up after testing to review results. I have spent 35 minutes with this patient, with >50% of that time spent counseling patient on above stated issues. In addition to direct face to face time, I have personally spent 15 minutes precharting, reviewing patient's interim medical history, coordinating care, and completing documentation on day of encounter for a total time of 50 minutes. DAKOTA Masters documented in this encounter Plan of Treatment Upcoming Encounters Date Type Department Care Team (Latest Contact Info) Description 06/03/2024 12:00 PM EDT Hospital Encounter Operating [place] [address] Constanza Douglass MD [facility] [place] [address] 06/03/2024 12:00 PM EDT - 06/03/2024 12:45 PM EDT Surgery Operating [place] [address] Constanza Douglass MD [facility] [place] [address] COLONOSCOPY, DIAGNOSTIC (WRVU 3.26) Scheduled Orders Name Type Priority Associated Diagnoses Orde r Schedule IgA Lab Routine Chronic diarrhea Expected: 04/19/2024 (Approximate), Expires: 05/16/2024 IgG Lab Routine Chronic diarrhea Expected: 04/19/2024 (Approximate), Expires: 05/16/2024 Tissue transglutaminase, IgA Lab Routine Chronic diarrhea Expected: 04/19/2024 (Approximate), Expires: 05/16/2024 Comprehensive metabolic panel (non-fasting) Lab Routine Chronic diarrhea Expected: 04/19/2024 (Approximate), Expires: 10/19/2024 CRP, acute inflammation Lab Routine Chronic diarrhea Expected: 04/19/2024 (Approximate), Expires: 10/19/2024 Hemogram Lab Routine Chronic diarrhea Expected: 04/19/2024 (Approximate), Expires: 10/19/2024 Magnesium Lab Routine Chronic diarrhea Expected: 04/19/2024 (Approximate), Expires: 10/19/2024 TSH Wood Lab Routine Chronic diarrhea Expected: 04/19/2024 (Approximate), Expires: 10/19/2024 TTG Antibody IgG Lab Routine Chronic diarrhea Expected: 04/19/2024 (Approximate), Expires: 10/16/2024 Cortisol Lab Routine Chronic diarrhea Expected: 04/19/2024 (Approximate), Expires: 10/19/2024 C. Difficile Screen Microbiology Routine Chronic diarrhea Expected: 04/19/2024 (Approximate), Expires: 10/19/2024 Fecal Fat Qualitative Lab Routine Chronic diarrhea Expected: 04/19/2024 (Approximate), Expires: 10/19/2024 Giardia/Cryptosporidium Antigens ([facility]CGP/APD/[facility]) Microbiology Routine Chronic diarrhea Expected: 04/19/2024 (Approximate), Expires: 10/19/2024 Helicobacter pylori Antigen Stool Microbiology Routine Chronic diarrhea Expected: 04/19/2024 (Approximate), Expires: 10/19/2024 Stool Culture Screen ([facility]/CG/APD/NL) Microbiology Routine Chronic diarrhea Expected: 04/19/2024 (Approximate), Expires: 10/19/2024 ENDOSCOPY CASE REQUEST: COLONOSCOPY, DIAGNOSTIC (WRVU 3.26) Procedures Routine Chronic diarrhea Screen for colon cancer Adenoma of colon Ordered: 04/16/2024 Scheduled Procedures Name Priority Associated Diagnoses Date/Ti il COLONOSCOPY, DIAGNOSTIC (WRVU 3.26) Chronic diarrhea Screen for colon cancer Adenoma of colon 06/03/2024 12:00 PM EDT documented as of this encounter Visit Diagnoses Diagnosis Chronic diarrhea- Primary Diarrhea Diverticulitis of large intestine with perforation without bleeding Left sided abdominal pain Abdominal pain, unspecified site Screen for colon cancer Special screening for malignant neoplasms, colon Adenoma of colon Chronic diarrhea Diarrhea Screen for colon cancer Special screening for malignant neoplasms, colon Adenoma of colon documented in this encounter Care Teams Diamond Saw Operator Relationship Specialty Start Date End Date Sharon Concepcion PA [address] [address] PCP - General Family Medicine 04/01/24 documented as of this encounter
--- OUTSIDE RECORDS SUMMARY | 2024-05-28 08:10 | XMS_ITS | Encounter Summary ---
Author Organization [facility] Address [address] [place] [address] Care Team Providers Care Utility Inspector Name Role Phone Unavailable Primary Care Provider Unavailabl e Encounter Details Date Type Department Care Team (Late st Contact Info) Description 08/31/2011 Results Only [facility] Laboratory Services - [facility] ([facility]) [address] [place] [address] Octavia Mike MD [address] [address] Social History Tobacco Use Types [...] Diagnosis Comments PAP TEST- RESULT ONLY Routine 08/31/2011 0:00 EDT documented in this encounter Results * PAP TEST- RESULT ONLY (08/31/2011 0:00 EDT) Pathology Report: CYTOPATHOLOGY REPORT Reports generated via electronic interface contain original data; however they are lacking the format of the original report. Caution should be taken when reading/interpreti ng unformatted reports. Name: ? ABBIE HERNANDEZ ? Accession #: ? [id number] : ? 1990 (Age: 21) ??F ?Collect Date: ? 08/31/2011 Location: ? [facility] ? Receive Date: ? 09/01/2011 Provider: ?OCTAVIA MIKE MD Copy to: ? Specimen/Source: ?Pap Test, Cervix/Endocervix, ThinPrep Imaging System with manual evaluation Last Menstrual Period: ? 06/2011 Hormonal/Contracep tive Status: ? Yes: seasonique ? SPECIMEN ADEQUACY ? Satisfactory for Evaluation - transformation zone component present - scant squamous epithelial component GENERAL CATEGORIZATION ? Negative for Intraepithelial Lesion or Malignancy ? Document reviewed and electronically signed by: ? Kecia Jamison, SCT(ASCP) ? Report Date: ??09/08/2011 15:03 End of Report [facility] 08/31/2011 09/01/2011 Octavia Mike MD PATHOLOGY ORDERABLES [facility] [address] [place] [address] documented in this encounter Visit Diagnoses Not on filedocumented in this encounter
--- OUTSIDE RECORDS SUMMARY | 2024-05-28 08:10 | XMS_ITS | Encounter Summary ---
Author Organization [facility] Address [facility] [place] [address] Care Team Providers Care Bacteriologist Food Name Role Phone Sharon Concepcion Primary Care Provider + [phone] Encounter Details Date Type Department Care Team (Late st Contact Info) Description 04/22/2024 Abstract Orthopaedics at [facility] [place] [address] Kecia Varela LNA Social History Tobacco Use Types Packs/Day Years Used Date Smoking Tobacco: Former Cigarettes Smokeless Tobacco: Never Sex and Gender Information Value Date Recorded Sex Assigned at Not on file Gender Identity Not on file Sexual Orientation Not on file documented as of this encounter Last Filed Vital Signs Vital Sign Reading Time Taken Comments Blood Pressure 122/78 04/22/2024 10:27 AM EDT Pulse - - Temperature - - Respiratory Rate - - Oxygen Saturation - - Inhaled Oxygen Concentration - - Weight 118.4 kg (261 lb) 04/22/2024 10:27 AM EDT Height 165.1 cm (5' 5) 04/22/2024 10:27 AM EDT Body Mass Index 43.43 04/22/2024 10:27 AM EDT documented in this encounter Plan of Treatment Upcoming Encounters Date Type Department Care Team (Latest Contact Info) Description 06/03/2024 12:00 PM EDT Hospital Encounter Operating Room [facility] [place] [address] Constanza Douglass MD [facility] [place] [address] 06/03/2024 12:00 PM EDT - 06/03/2024 12:45 PM EDT Surgery Operating Room [place] [id number] Constanza Douglass MD [facility] [place] [address] COLONOSCOPY, DIAGNOSTIC (WRVU 3.26) Scheduled Procedures Name Priority Associated Diagnoses Date/Ti me COLONOSCOPY, DIAGNOSTIC (WRVU 3.26) Chronic diarrhea Screen for colon cancer Adenoma of colon 06/03/2024 12:00 PM EDT documented as of this encounter Visit Diagnoses Not on filedocumented in this encounter Care Teams Bacteriologist Food Relationship Specialty Start Date End Date Sharon Concepcion PA [address] [place] [address] PCP - General Family Medicine 04/01/24 documented as of this encounter
--- OUTSIDE RECORDS SUMMARY | 2024-05-28 08:10 | XMS_ITS | Encounter Summary ---
Author Organization [facility] Address [address] [place] [address] Care Team Providers Care Arts Manager Name Role Phone Unavailable Primary Care Provider Unavailabl e Encounter Details Date Type Department Care Team (Late st Contact Info) Description 12/30/2005 Results Only [facility] [address] [place] [address] Natacha Cintron, [employer] [address] [place] [address] Social History Tobacco Use Types Packs/Day Years Used Date Smoking Tobacco: Never Assessed Sex and Gender Information Value Date Recorded Sex Assigned at Not on file Gender Identity Not on file Sexual Orientation Not on file documented as of this encounter Plan of Treatment Not on file documented as of this encounter Procedures Procedure Name Priority Date/Time Associated Diagnosis Comments CYTOPATHOLOGY Routine 12/30/2005 0:00 EST documented in this encounter Results * CYTOPATHOLOGY (12/30/2005 0:00 EST) Pathology Report: CYTOPATHOLOGY REPORT Reports generated via electronic interface contain original data; however they are lacking the format of the original report. Caution should be taken when reading/interpreti ng unformatted reports. Name: ? ABBIE HERNANDEZ ? Accession #: ? [id number] : ? 1990 (Age: 15) ??F ?Collect Date: ? 12/30/2005 Location: ? [facility] ? Receive Date: ? 01/02/2006 Provider: ?NATACHA CINTRON EVIDENCE TECHNICIAN Copy to: ? Specimen/Source: ?ThinPrep Pap Test, Cervix/Endocervix, processed on [employer] ThinPrep Imaging System, with manual evaluation Last Menstrual Period: ? 12/14/05 Hormonal/Contracep tive Status: ? Orthotricyclen: Lo Other: ? HPVA - HPV testing requested if ASC-US on the current ThinPrep Pap test. ? SPECIMEN ADEQUACY ? Satisfactory for Evaluation - transformation zone component present GENERAL CATEGORIZATION ? Negative for Intraepithelial Lesion or Malignancy ? Document reviewed and electronically signed by: ? MARTA Jones(ASCP) ? Report Date: ??01/05/2006 10:13 End of Report [facility] 12/30/2005 01/02/2006 Natacha Cintron NP PATHOLOGY ORDERABLES Performing Organization Address City/State/[facility] Co de Phone Number [facility] [address] [place] [address] documented in this encounter Visit Diagnoses Not on filedocumented in this encounter
--- OUTSIDE RECORDS SUMMARY | 2024-05-28 08:10 | XMS_ITS | Encounter Summary ---
Author Organization [facility] Address [address] [place] [address] Care Team Providers Care Sanitary Engineer Name Role Phone Unknown, Provider Primary Care Provider Encounter Details Date Type Department Care Team (Late st Contact Info) Description 04/23/2024 Lab Requisition [facility] Pathology & Laboratory Medicine - [facility] [address] [place] [address] Outr Resulting Lab, Provider Social History Tobacco Use Types Packs/Day Years [...] 13:00 EDT IGG Routine 04/23/2024 13:00 EDT documented in this encounter Results * IGA (04/23/2024 13:00 EDT) IgA 321 85 - 499 mg/dL 04/24/2024 9:18 EDT [facility] Blood VENOUS BLOOD / Unknown 04/23/2024 13:00 EDT 04/23/2024 21:51 EDT Provider Outr Resulting Lab CHEMISTRY & BLOOD GAS ORDERABLES [facility] [address], [place] [id number] * IGG (04/23/2024 13:00 EDT) IgG 1,018 610 - 1,616 mg/dL 04/24/2024 9:18 EDT [facility] Blood VENOUS BLOOD / Unknown 04/23/2024 13:00 EDT 04/23/2024 21:51 EDT Provider Outr Resulting Lab CHEMISTRY & BLOOD GAS ORDERABLES Performing Organization Address City/State/[facility] Co de Phone Number [facility] [address] [place] [phone] documented in this encounter Visit Diagnoses Not on filedocumented in this encounter Care Teams Sanitary Engineer Relationship Specialty Start Date End Date Unknown, Provider, PCP - General 09/20/15 documented as of this encounter
--- OUTSIDE RECORDS SUMMARY | 2024-05-28 08:10 | XMS_ITS | Encounter Summary ---
Author Organization [facility] Address [address] [place] [address] Care Team Providers Care Ticket Sorter Name Role Phone Unknown, Provider Primary Care Provider Encounter Details Date Type Department Care Team (Late st Contact Info) Description 12/19/2018 Results Only [facility] [phone] Talia Kenny, HOME MORTGAGE DISCLOSURE ACT SPECIALIST [address] [place] [address] Social History Tobacco Use Types Packs/Day Years [...] Diagnosis Comments PAP TEST- RESULT ONLY Routine 12/19/2018 0:00 EST documented in this encounter Results * PAP TEST- RESULT ONLY (12/19/2018 0:00 EST) Pathology Report: CYTOPATHOLOGY REPORT Reports generated via electronic interface contain original data; however they are lacking the format of the original report. Caution should be taken when reading/interpreti ng unformatted reports. Name: ? ABBIE HERNANDEZ ? Accession #: ? [id number] ? : ? 1990 (Age: 28) ??F ?Collect Date: ? 12/19/2018 ? Location: ? [facility] ? Receive Date: ? 12/20/2018 ? Provider: TALIA KENNY APRN Copy to: ENMA MIKE MD ? Final Report SPECIMEN ADEQUACY ? Satisfactory for Evaluation - transformation zone component present GENERAL CATEGORIZATION ? Negative for Intraepithelial Lesion or Malignancy ?? Last Menstrual Period: current Hormonal/Contracep tive status: Yes: nexplanon Specimen/Source: ??Pap Test, Cervix, ThinPrep Imaging System with manual evaluation Document reviewed and electronically signed by: ? MARTA Jones(ASCP) ? Report ??Date: 12/25/2018 13:51 HPV with Pap Test ? Date Ordered: ? 12/25/2018 ? Status: ?? Signed Out ?Date Complete: ? 12/26/2018 ? By: ??System Interface ? Date Reported: ? 12/26/2018 ? Interpretation RESULT: Negative for HPV. No E6 or E7 mRNA is detected from HPV types 16,18,31,33,35, 39,45,51,52,56,58, 59,66, and 68 by bituminous paving machine operator mediated amplification. Comments Document reviewed and electronically signed by: ? System Interface ? Report date: 12/26/2018 By the signature above, the attending physician certifies that he/she has personally conducted a gross and/or microscopic examination of the described specimens and rendered or confirmed the above diagnosis. End of Report [facility] 12/19/2018 12/20/2018 Talia Kenny APRN PATHOLOGY ORDERAB LES [facility] [address] [place] [address] documented in this encounter Visit Diagnoses Not on filedocumented in this encounter Care Teams Ticket Sorter Relationship Specialty Start Date End Date Unknown, Provider, PCP - General 09/20/15 documented as of this encounter
--- OUTSIDE RECORDS SUMMARY | 2024-05-28 08:10 | XMS_ITS | Encounter Summary ---
Author Organization [facility] Address [address] [place] [address] Care Team Providers Care Roll Mechanic Name Role Phone Unknown, Provider Primary Care Provider [phone] Encounter Details Date Type Department Care Team (Late st Contact Info) Description 09/14/2018 Results Only [facility] [phone] Bryanna Horta, [address] [place] [address] Social History Tobacco Use Types [...] Diagnosis Comments PAP TEST- RESULT ONLY Routine 09/14/2018 0:00 EDT documented in this encounter Results * PAP TEST- RESULT ONLY (09/14/2018 0:00 EDT) Pathology Report: CYTOPATHOLOGY REPORT Reports generated via electronic interface contain original data; however they are lacking the format of the original report. Caution should be taken when reading/interpret ing unformatted reports. Name: ? ABBIE HERNANDEZ ? Accession #: ? [id number] : ? 1990 (Age: 28) ??F ?Collect Date: ? 09/14/2018 Location: ? [facility] ? Receive Date: ? 09/18/2018 Provider: ?BRYANNA HORTA ENGINEERING EQUIPMENT OPERATOR Copy to: ?ENMA MIKE MD ? Specimen/Source: ?Pap Test, Cervix, ThinPrep Imaging System with manual evaluation Last Menstrual Period: ? 08/25/18 ? SPECIMEN ADEQUACY ? Unsatisfactory for Evaluation - Insufficient numbers of squamous epithelial cells (less than 10% of expected cellularity) possibly due to lubricant GENERAL CATEGORIZATION ? Specimen processed and examined, but unsatisfactory for evaluation of epithelial abnormality. Recommend Pap test in 2-4 months as stated in ASCCP's 2012 Updated Guidelines. HPV testing will not be performed due to the potential for false negative results. ? Document reviewed and electronically signed by: ? MARTA Hernandez(ASCP) ? Report Date: ??09/26/2018 15:44 End of Report [facility] 09/14/2018 09/18/2018 Bryanna Horta ENGINEERING EQUIPMENT OPERATOR PATHOLOGY ORDERABLES [facility] [address] [place] [address] documented in this encounter Visit Diagnoses Not on filedocumented in this encounter Care Teams Roll Mechanic Relationship Specialty Start Date End Date Unknown, Provider, PCP - General 09/20/15 documented as of this encounter
--- OUTSIDE RECORDS SUMMARY | 2024-05-28 08:10 | XMS_ITS | Encounter Summary ---
Author Organization [facility] [place] [address] Care Team Providers Care Airplane Tube Builder Name Role Phone Octavia Mike MD Primary Care Provider [phone] Encounter Details Date Type Department Care Team (Late st Contact Info) Description 03/09/2015 12:45 PM EDT Office Visit Audiology at [address] [address] Krystle Avila AUD [facility] [place] [address] Abnormal auditory perception of both ears; Other examination of ears and hearing Discharge Disposition: Home Social History Tobacco Use Types Packs/Day Years Used Date Smoking Tobacco: Never Assessed Sex and Gender Information Value Date Recorded Sex Assigned at Not on file Gender Identity Not on file Sexual Orientation Not on file documented as of this encounter Progress Notes * Krystle Avila AUD - 03/09/2015 1:22 PM EDT AUDIOLOGY SECTION AUDIOLOGIC EVALUATION Name: Abbie Hernandez Age: 24 y.o. Referring provider: OCTAVIA MIKE MD Date: 03/09/2015 Reason for referral: Evaluation of hearing loss History: Abbie Hernandez was seen today for an audiologic evaluation due to concerns regarding herhearing. Ms. Hernandez has experienced difficulty hearing, which has progressively worsened, over thepast seven years. She has to increase the volume on the television and telephone. She finds communicating to be most challenging when background noise is present. She reported people tell her she speaks too loudly at times. Ms. Hernandez stated she has undergone previous audiologic evaluations in thewast 7 years, where her hearing was found to be within normal limits. Otologic symptoms: -Tinnitus: Occasional bilateral tinnitus -Otalgia: Experiences bilateral otalgia after showering or with changes in elevation -Aural fullness: Experiences bilateral aural fullness after showering or with changes in elevation -Middle ear pathology: History of otitis media with tube placement as a child -Dizziness: Denied -Familial hearing loss: Denied -Noise exposure: Denied -Trauma of the head/neck: Denied -Surgery of the head/neck: History of tonsillectomy and adenoidectomy and bilateral pressure equalizing tubes as a child EVALUATION: (please refer to audiogram) RESULTS/IMPRESSIONS: ?? Hearing is within normal limits bilaterally from 250-8,000 Hz. ?? Word recognition scores were determined to be good bilaterally when presented at a soft presentation level (35 dB HL) and excellent bilaterally when presented at a normal conversation level (50 dBHL). ?? The QuickSIN was performed in the soundfield at 50 dB HL where an SNR loss of 2.5 was obtained (SNR loss of 0-3 dB considered normal/near normal). ?? Otoscopy was unremarkable bilaterally. ?? Tympanometry suggested normal middle ear system function in the right ear and hypercompliant middle ear function in the left ear. ?? The results of today's evaluation were discussed with Ms. Hernandez including consideration of auditory processing testing due to reported difficulty hearing in background noise. A list of auditory processing test centers was provided if she becomes interested in further evaluation. RECOMMENDATIONS: 1. Audiologic re-evaluation in 3 years; sooner if concerns arise. 2. Use of communication strategies in noisy environments (i.e speaking face to face and reducing background noise). 3. Use of hearing protection when exposed to hazardous noise. Please do not hesitate to contact this Section at [phone] if there are questions regarding this report or [place] [address] Attachment: audiogram CC: OCTAVIA MIKE MD documented in this encounter Plan of Treatment Upcoming Encounters Date Type Department Care Team (Latest Contact Info) Description 06/03/2024 12:00 PM EDT Hospital Encounter Operating Room [place] [address] Constanza Douglass MD [facility] [place] [address] 06/03/2024 12:00 PM EDT - 06/03/2024 12:45 PM EDT Surgery Operating Room [place] [place] [phone] Constanza Douglass MD [facility] [place] [address] COLONOSCOPY, DIAGNOSTIC (WRVU 3.26) Scheduled Procedures Name Priority Associated Diagnoses Date/Ti me COLONOSCOPY, DIAGNOSTIC (WRVU 3.26) Chronic diarrhea Screen for colon cancer Adenoma of colon 06/03/2024 12:00 PM EDT documented as of this encounter Visit Diagnoses Diagnosis Abnormal auditory perception of both ears Other examination of ears and hearing Chronic diarrhea Diarrhea Screen for colon cancer Special screening for malignant neoplasms, colon Adenoma of colon documented in this encounter Care Teams Airplane Tube Builder Relationship Specialty Start Date End Date Octavia Mike MD [facility] [address] [place] [address] PCP - General 02/27/15 03/31/24 documented as of this encounter
--- OUTSIDE RECORDS SUMMARY | 2024-05-28 08:10 | XMS_ITS | Encounter Summary ---
[facility] [place] [address] Care Team Providers Care Sephora Operations Consultant Name Role Phone Sharon Concepcion Primary Care Provider [phone] Reason for Visit * Reason Onset Date Comments Colonoscopy 04/24/2024 Screening questi ons complete Encounter Details Date Type Department Care Team (Late st Contact Info) Description 04/24/2024 Telephone Surgical Specialties at [facility] [address] [place] [phone] Citlaly Munoz Colonoscopy (Screening questions complete) Social History Tobacco Use Types Packs/Day Years Used Date Smoking Tobacco: Former Cigarettes Smokeless Tobacco: Never Sex and Gender Information Value Date Recorded Sex Assigned at Not on file Gender Identity Not on file Sexual Orientation Not on file documented as of this encounter Miscellaneous Notes * Telephone Encounter - Citlaly Munoz - 04/24/2024 4:23 PM EDT PCP: DAKOTA Ortega Received referral: Yes Received last office note: Yes, Date 46 to 49.9 (NEEDS ANETHESIA REVIEW) 49.9 AND ABOVE HARD STOP *Please Verify the height and weight, and adjust if height and/or weight have changed* Estimated body mass index is 43.43 kg/m?? as calculated from the following: Height as of 04/22/24: 165.1 cm (5' 5). Weight as of 04/22/24: 118.4 kg (261 lb). Do you have any COPD? No - Continue with questions Do you use an oxygen tank? No - Continue with questions 3. Are you a diabetic? no No results found for: HA1C IF GREATER THEN 10 (NEEDS ANESTHESIA REVIEW) 4. Do you take any medications for weight loss and/or diabetes? No (IF PATIENT IS ON ANY DIABETES/WT LOSS MEDS - SEND TO NURSE) 5. Do you have any cardiac disease? Such as a history of heart surgery, congestive heart failure, coronary artery disease, severe aortic disease, stent placement, HI (heart attack) pacemaker or defibrillator? No 6. Are you on dialysis? No - Continue with questions Sodium (Less than 130 - send to anesthesia) Potassium No results found for: K (Less than 2.5 - HARD STOP, 2.5-3.5 - send to anesthesia) Platelets No results found for: PLATELET (Less than 75 - HARD STOP) 7. Have you recently been diagnosed with COVID, Flu, or RSV? No 8. Have you ever had a/an Colonoscopy before? Yes: Date 2020 If yes, did you have any problems with the procedure? [X] No What type of sedation was used? IV CONSCIOUS SEDATION Have you had a problem with sedation or anesthesia? [X] Yes woke up several times during last colo 9. Do you take any blood thinners such as Coumadin, Xeralto, Eliquis, Plavix or Brilinta? No - Continue with questions 10. Do you have an allergy to latex? No 11. Do you take an iron supplement or a supplement with iron in it? no 12. Do you take prescription narcotic pain medications, including suboxone or methodone? No 13. Have you been diagnoses with or experiencing constipation? [X] No 14. Do you have a daily bowel movement? [X] Yes 15. Have you had any problems with colonoscopy prep in the past (including being told that it was poor or incomplete)? [X] No 16. Are you allergic or unable to tolerate Miralax due to side effects of nausea and vomiting? [X] No Sent to Anesthesia for scheduling clearance: Date: NA Cleared to Schedule? yes IF THERE ARE NO HARD STOPS, PATIENT IS NOT ON A BLOOD THINNER OR DIABETES MEDS AND THERE IS NO INDICATION TO SEND FOR ANESTHESIA REVIEW - PROCEED TO SCHEDULING THE PATIENT documented in this encounter Plan of Treatment Upcoming Encounters Date Type Department Care Team (Latest Contact Info) Description 06/03/2024 12:00 PM EDT Hospital Encounter Operating Room [place] [address] Constanza Douglass MD [facility] [place] [address] 06/03/2024 12:00 PM EDT - 06/03/2024 12:45 PM EDT Surgery Operating Room [place]ana [place] [address] Constanza Douglass MD [facility] [place] [address] COLONOSCOPY, DIAGNOSTIC (WRVU 3.26) Scheduled Procedures Name Priority Associated Diagnoses Date/Ti me COLONOSCOPY, DIAGNOSTIC (WRVU 3.26) Chronic diarrhea Screen for colon cancer Adenoma of colon 06/03/2024 12:00 PM EDT documented as of this encounter Visit Diagnoses Not on filedocumented in this encounter Care Teams Sephora Operations Consultant Relationship Specialty Start Date End Date Sharon Concepcion PA [address] [place] [address] PCP - General Family Medicine 04/01/24 documented as of this encounter
--- OUTSIDE RECORDS SUMMARY | 2024-05-28 08:10 | XMS_ITS | Encounter Summary ---
Author Organization [facility] Address [address] [place] [address] Care Team Providers Care Undraped Artist Model Name Role Phone Unknown, Provider Primary Care Provider Encounter Details Date Type Department Care Team (Late st Contact Info) Description 08/16/2017 Results Only [facility] [phone] Octavia Mike MD [address] [address] Social History Tobacco Use Types [...] Diagnosis Comments PAP TEST- RESULT ONLY Routine 08/16/2017 0:00 EDT documented in this encounter Results * PAP TEST- RESULT ONLY (08/16/2017 0:00 EDT) Pathology Report: CYTOPATHOLOGY REPORT Reports generated via electronic interface contain original data; however they are lacking the format of the original report. Caution should be taken when reading/interpreti ng unformatted reports. Name: ? ABBIE HERNANDEZ ? Accession #: ? [id number] : ? 1990 (Age: 27) ??F ?Collect Date: ? 08/16/2017 Location: ? [facility] ? Receive Date: ? 08/21/2017 Provider: ?OCTAVIA MIKE MD Copy to: ? Specimen/Source: ?Pap Test, Cervix, ThinPrep Imaging System with manual evaluation Last Menstrual Period: ? 2017 Hormonal/Contracep tive Status: ? Oral contraceptives ? SPECIMEN ADEQUACY ? Satisfactory for Evaluation - transformation zone component present - scant squamous epithelial component secondary to excessive inflammation GENERAL CATEGORIZATION ? Negative for Intraepithelial Lesion or Malignancy ? Document reviewed and electronically signed by: ? MARTA Martinez(ASCP) ? Report Date: ??08/31/2017 14:10 End of Report [facility] 08/16/2017 08/21/2017 Octavia Mike MD PATHOLOGY ORDERABLES [facility] [address] [place] [address] documented in this encounter Visit Diagnoses Not on filedocumented in this encounter Care Teams Undraped Artist Model Relationship Specialty Start Date End Date Unknown, Provider, PCP - General 09/20/15 documented as of this encounter
--- OUTSIDE RECORDS SUMMARY | 2024-05-28 08:10 | XMS_ITS | Encounter Summary ---
Author Organization [facility] Address [facility] [place] [address] Care Team Providers Care Sports Specialist Name Role Phone Octavia Naavrro MD Primary Care Provider [phone] Encounter Details Date Type Department Care Team (Late Contact Info) Description 05/30/2021 Ancillary Procedure [place] [address] Sharon Concepcion PA [address] [address] Social History Tobacco Use Types Packs/Day Years [...] Operating Room Jo[address] [place] [phone] Constanza Douglass MD [facility] [place] [address] 06/03/2024 12:00 PM EDT - 06/03/2024 12:45 PM EDT Surgery Operating Room Joana Man[address] [place] [phone] Constanza Douglass MD [facility] [place] [address] COLONOSCOPY, DIAGNOSTIC (WRVU 3.26) Scheduled Procedures Name Priority Associated Diagnoses Date/Ti nm COLONOSCOPY, DIAGNOSTIC (WRVU 3.26) Chronic diarrhea Screen for colon cancer Adenoma of colon 06/03/2024 12:00 PM EDT documented as of this encounter Procedures Procedure Name Priority Date/Time Associated Diagnosis Comments FILM LIBRARY STORAGE ONLY CT ABDOMEN AND PELVIS Routine 05/30/2021 12:00 AM EDT documented in this encounter Results * Film Library- Storage Only CT Abdomen & Pelvis (05/30/2021 12:00 AM EDT) Narrative [facility] - 04/05/2024 10:33 AM EDT This exam is auto-finalizing. It's purpose is for storage only. Sharon DUNCAN IMG FILM LIBRARY ORD ERABLES Performing Organization Address City/State/[facility] Co de Phone Number [place], [place] documented in this encounter Visit Diagnoses Not on filedocumented in this encounter Care Teams Sports Specialist Relationship Specialty Start Date End Date Octavia Navarro MD [address] [place] [address] PCP - General 02/27/15 03/31/24 documented as of this encounter
--- OUTSIDE RECORDS SUMMARY | 2024-05-28 08:10 | XMS_ITS | Encounter Summary ---
Author Organization [facility] Address [address] [place] [address] Care Team Providers Care Facialist Name Role Phone Unavailable Primary Care Provider Unavailabl e Encounter Details Date Type Department Care Team (Late st Contact Info) Description 07/22/2010 Results Only [facility] Laboratory Services - [facility] ([facility] [address] [place] [address] Octavia Mike MD [address] [place] [address] [place] [phone] Social History Tobacco Use Types Packs/Day Years Used Date Smoking Tobacco: Never Assessed Sex and Gender Information Value Date Recorded Sex Assigned at Not on file Gender Identity Not on file Sexual Orientation Not on file documented as of this encounter Plan of Treatment Not on file documented as of this encounter Procedures Procedure Name Priority Date/Time Associated Diagnosis Comments CYTOPATHOLOGY Routine 07/22/2010 0:00 EDT documented in this encounter Results * CYTOPATHOLOGY (07/22/2010 0:00 EDT) Pathology Report: CYTOPATHOLOGY REPORT ? Reports generated via electronic interface contain original data; ? however they are lacking the format of the original report. ? Caution should be taken when reading/interpreti ng unformatted reports. ? Name: ? TREVOR, ABBIE ? Accession #: ? [id number] ? : ? 1990 (Age: 20) ??F ?Collect Date: ? 07/22/2010 ? Location: ? [facility] ? Receive Date: ? 07/26/2010 ? Provider: ?OCTAVIA MIKE MD ? Copy to: ? Specimen/Source: ?Pap Test, Cervix/Endocervix, ThinPrep Imaging System ? with manual evaluation ? Last Menstrual Period: ? 07/15/2010 ? Hormonal/Contracep tive Status: ? Yes: Seasonale ? Other: ? HPVA - HPV testing requested if ASC-US on the current ThinPrep Pap test. ? SPECIMEN ADEQUACY ? Satisfactory for Evaluation ? - transformation zone component present ? - scant squamous epithelial component ? GENERAL CATEGORIZATION ? Negative for Intraepithelial Lesion or Malignancy ? Document reviewed and electronically signed by: ? Oswald Barraza, CT(ASCP) ? Report Date: ??07/27/2010 13:17 ? End of Report ? [facility] 07/22/2010 07/26/2010 Octavia Mike MD PATHOLOGY ORDERABLES [facility] [address] [place] [address] documented in this encounter Visit Diagnoses Not on filedocumented in this encounter
--- OUTSIDE RECORDS SUMMARY | 2024-05-28 08:10 | XMS_ITS | Encounter Summary ---
Author Organization [facility] Address [address] [place] [address] Care Team Providers Care Batch Tester Name Role Phone Unavailable Primary Care Provider Unavailabl e Encounter Details Date Type Department Care Team (Late st Contact Info) Description 05/22/2008 Before PRISM Converted Visit (Maple) [facility] - Maple conversion [address] [place] [address] Jimy Ruiz MD [address] [place] [address] [address] [place], [place] [id number] Social History Tobacco Use Types Packs/Day Years Used Date Smoking Tobacco: Never Assessed Sex and Gender Information Value Date Recorded Sex Assigned at Not on file Gender Identity Not on file Sexual Orientation Not on file documented as of this encounter Plan of Treatment Not on file documented as of this encounter Procedures Procedure Name Priority Date/Time Associated Diagnosis Comments CYTOPATHOLOGY Routine 05/22/2008 0:00 EDT documented in this encounter Results * CYTOPATHOLOGY (05/22/2008 0:00 EDT) Pathology Report: CYTOPATHOLOGY REPORT ? Reports generated via electronic interface contain original data; ? however they are lacking the format of the original report. ? Caution should be taken when reading/interpreti ng unformatted reports. ? Name: ? ABBIE HERNANDEZ ? Accession #: ? [id number] ? : ? 1990 (Age: 18) ??F ?Collect Date: ? 05/22/2008 ? Location: ? [facility] ? Receive Date: ? 05/26/2008 ? Provider: ?JIMY RUIZ MD ? Copy to: ? Specimen/Source: ?ThinPrep Pap Test, Cervix/Endocervix, processed on [employer] ThinPrep Imaging System, with manual evaluation ? Last Menstrual Period: ? 8/14/07 ? Menstrual/Pregnanc y Status: ? Post ? Other: ? HPVA - HPV testing requested if ASC-US on the current ThinPrep Pap test. ? SPECIMEN ADEQUACY ? Unsatisfactory for Evaluation, ? - insufficient numbers of squamous epithelial cells (less than 10% of expected ?? cellularity) ? GENERAL CATEGORIZATION ? Specimen processed and examined, but unsatisfactory for evaluation of ? epithelial abnormality. ? Recommend repeat Pap test or further follow up, as clinically indicated. ? Document reviewed and electronically signed by: ? Pauline Aguilar, CT(ASCP)(IAC) ? Report Date: ??06/02/2008 15:24 ? End of Report ? [facility] 05/22/2008 05/26/2008 Jimy Ruiz MD PATHOLOGY ORDERABLES [facility] [address] [place] [address] documented in this encounter Visit Diagnoses Not on filedocumented in this encounter
--- OUTSIDE RECORDS SUMMARY | 2024-05-28 08:10 | XMS_ITS | Clinical Summary ---
Author Organization [facility] Address [facility] [place] [address] Care Team Providers Care Pancake Professional Name Role Phone Sharon Concepcion Primary Care Provider [phone] Allergies Active Allergy Reactions Criticality Noted Date Comments Sulfamethoxazole-Trimethoprim Rash 2023 Cephalexin Diarrhea 04/22/2024 Medications Medication Sig Dispensed Refills Start Date End Date Status citalopram (CeleXA) 40 mg tablet Take 1 tablet by mouth Daily at Noon. 03/26/2024 Active buPROPion XL (Wellbutrin XL) 150 mg XL 24 hr tablet Take 150 mg by mouth every morning. 03/29/2024 Active dicyclomine (Bentyl) 20 mg tablet Take 20 mg by mouth every 6 hours. Active albuteroL 90 mcg/actuation inhaler (HFA) Inhale 2 puffs into the lungs every 6 hours as needed for Wheezing. Use with Spacer Active levonorgestrel-ethinyl estradiol (Seasonale, Jolessa) 0.15 mg-30 mcg (91) tablet 3 month pack Take 1 tablet by mouth daily. Active Active Problems Problem Noted Date Diagnosed Date Hypothyroidism 04/22/2024 Obesity 04/22/2024 Depression 04/22/2024 Anxiety 04/22/2024 Asthma 04/22/2024 IBS (irritable bowel syndrome) 04/22/2024 Eczema 04/22/2024 Acanthosis nigricans 04/22/2024 ADHD (attention deficit hype ractivity disorder), combined type 04/22/2024 Lower abdominal pain 04/18/2024 Sessile colonic polyp 04/18/2024 Diverticulosis 04/18/2024 Encounters Date Type Department Care Team Description 04/24/2024 Telephone Surgical Specialties at [place] [id number] Citlaly Munoz Colonoscopy (Screening questions complete) 04/22/2024 Abstract Orthopaedics [place] [address] Kecia Varela LNA 04/18/2024 Abstract Orthopaedics [place] [address] Kecia Varela LNA 04/16/2024 3:00 PM EDT TH Visit (TeleHealth) [place] [address] Gunjan Jennings PA Chronic diarrhea (Primary Dx); Diverticulitis of large intestine with perforation without bleeding; Left sided abdominal pain; Screen for colon cancer; Adenoma of colon 04/01/2024 Transcribe Orders eDH Incoming Referrals [phone] Sharon Concepcion PA Diverticulosis of intestine without perforation or abscess without bleeding; Irritable bowel syndrome without diarrhea from Last 3 Months Family History Medical History Relation Comments Hypertension Father Breast Cancer Mother Relation Status Comments Father Mother Social History Tobacco Use Types Packs/Day Years Used Date Smoking Tobacco: Former Cigarettes Smokeless Tobacco: Never Tobacco Cessation:Counseling Given: Not Answered Sex and Gender Information Value Date Recorded Sex Assigned at Not on file Gender Identity Not on file Sexual Orientation Not on file Last Filed Vital Signs Vital Sign Reading Time Taken Comments Blood Pressure 122/78 04/22/2024 10:27 AM EDT Pulse - - Temperature - - Respiratory Rate - - Oxygen Saturation - - Inhaled Oxygen Concentration - - Weight 118.4 kg (261 lb) 04/22/2024 10:27 AM EDT Height 165.1 cm (5' 5) 04/22/2024 10:27 AM EDT Body Mass Index 43.43 04/22/2024 10:27 AM EDT Plan of Treatment Upcoming Encounters Date Type Department Care Team (Latest Contact Info) Description 06/03/2024 12:00 PM EDT Hospital Encounter Operating Room [facility] [place] [address] Constanza Douglass MD [facility] [place] [address] 06/03/2024 12:00 PM EDT - 06/03/2024 12:45 PM EDT Surgery Operating [place] [address] Constanza Douglass MD [facility] [place] [address] COLONOSCOPY, DIAGNOSTIC (WRVU 3.26) Scheduled Procedures Name Priority Associated Diagnoses Date/Ti me COLONOSCOPY, DIAGNOSTIC (WRVU 3.26) Chronic diarrhea Screen for colon cancer Adenoma of colon 06/03/2024 12:00 PM EDT Health Maintenance Due Date Last Done Comments Pneumococcal Vaccine: At-Ris k 5-64yrs (1 of 2 - PCV) 1994 HIV screen 2006 Hepatitis C Screening 2006 Lipid Screening 2006 Hepatitis B vaccine (0-59 yrs) (1) 2007 Tdap adult 2007 Tetanus vaccine 2007 HPV test 2018 PAP Smear 2018 Covid-19 Vaccine (3 - 2022- season) 07/14/202308/2021, 12/23/2020 Influenza (Flu) vaccine (1 o f 1 - Influenza standard series) 07/14/2024 Procedures Procedure Name Priority Date/Time Associated Diagnosis Comments LAB SCAN 04/23/2024 12:00 AM EDT from Last 3 Months Results * Scan Doc: Lab (04/23/2024 12:00 AM EDT) Narrative 04/23/2024 12:00 AM EDT Ordered by an unspecified provider. Scanning Provider MEDIA MGR SCAN EXT O RDR/RSLT from Last 3 Months Care Teams Pancake Professional Relationship Specialty Start Date End Date Sharon Concepcion PA [address] [place] [address] PCP - General Family Medicine 04/01/24
--- OUTSIDE RECORDS SUMMARY | 2024-05-28 08:10 | XMS_ITS | Encounter Summary ---
[place] [address] Care Team Providers Care General Milling Superintendent Name Role Phone Sharon Concepcion Primary Care Provider [phone] Reason for Referral * Consultation (Routine) - Authorized Specialty Diagnoses / Procedures Referred By Contac t Referred To Contact Gastroenterology Diagnoses Diverticulosis of intestine without perforation or abscess without bleeding Irritable bowel syndrome without diarrhea Sharon Concepcion PA [address] [place] [address] [facility] [place] [address] Referral ID Status Reason Start Date Expiration Date Visits Requested Visits Authorized [id number] Authorized Consult, Test & Treat PCP Updated and/or Approved 03/25/2024 09/25/2024 6 6 Encounter Details Date Type Department Care Team (Latest Contact Info) Description 04/01/2024 Transcribe Orders eDH Incoming Referrals [phone] Sharon Concepcion PA [address] [place] [phone] Diverticulosis of intestine without perforation or abscess without bleeding; Irritable bowel syndrome without diarrhea Social History Tobacco Use Types Packs/Day Years [...] Hospital Encounter Operating Room [place] [address] Constanza Douglass MD [facility] [place] [address] 06/03/2024 12:00 PM EDT - 06/03/2024 12:45 PM EDT Surgery Operating Room [place] [address] Constanza Douglass MD [facility] [place] [address] COLONOSCOPY, DIAGNOSTIC (WRVU 3.26) Scheduled Procedures Name Priority Associated Diagnoses Date/Ti me COLONOSCOPY, DIAGNOSTIC (WRVU 3.26) Chronic diarrhea Screen for colon cancer Adenoma of colon 06/03/2024 12:00 PM EDT Scheduled Referrals Name Type Priority Associated Diagnoses Order Schedule Referral to Gastroenterology Outpatient Referral Routine Diverticulosis of intestine without perforation or abscess without bleeding Irritable bowel syndrome without diarrhea Ordered: 04/01/2024 documented as of this encounter Visit Diagnoses Diagnosis Diverticulosis of intestine without perforation or abscess without bleeding Diverticulosis of colon (without mention of hemorrhage) Irritable bowel syndrome without diarrhea Irritable bowel syndrome Chronic diarrhea Diarrhea Screen for colon cancer Special screening for malignant neoplasms, colon Adenoma of colon documented in this encounter Care Teams General Milling Superintendent Relationship Specialty Start Date End Date Sharon Concecpion PA [address] [place] [address] PCP - General Family Medicine 04/01/24 documented as of this encounter
--- OUTSIDE RECORDS SUMMARY | 2024-05-28 08:10 | XMS_ITS | Encounter Summary ---
Author Organization [facility] Address [address] [place] [address] Care Team Providers Care Interactive Media Designer Name Role Phone Unknown, Provider Primary Care Provider [phone] Encounter Details Date Type Department Care Team (Late st Contact Info) Description 04/23/2024 Lab Requisition [facility] Pathology & Laboratory Medicine - [facility] [address] [place] [address] Outr Resulting Lab, Provider Social History Tobacco [...] Procedure Name Priority Date/Time Associated Diagnosis Comments TISSUE TRANSGLUTAMINASE ANTIBODY, IGA Routine 04/23/2024 13:00 EDT CORTISOL Routine 04/23/2024 13:00 EDT documented in this encounter Results * CORTISOL (04/23/2024 13:00 EDT) Cortisol 5 See Note ug/dL 04/23/2024 22:37 EDT [facility] Comment: NOTE: Reference Ranges [...] & BLOOD GAS ORDERABLES Performing Organization Address [facility] Co de Phone Number [facility] [address] [place], [place] [address] * TISSUE TRANSGLUTAMINASE ANTIBODY, IGA (04/23/2024 13:00 EDT) Tissue Transglutaminase Antibody, IgA 7.3 <20.0 CU 04/24/2024 11:36 EDT [facility] Comment: Negative: <20.0 CU Weak Positive: 20.0-30.0 CU Positive: >30.0 CU Results were obtained with the MyRealTrip[employer] Flash h-tTG IgA chemiluminescent immunoassay. Values obtained with different manufacturers' assay methods may not be used interchangeably. Blood VENOUS BLOOD / Unknown 04/23/2024 13:00 EDT 04/23/2024 21:48 EDT Provider Outr Resulting Lab IMMUNOLOGY A ND SEROLOGY ORDERABLES Performing Organization Address [facility] Co de Phone Number [facility] [address] [place] [address] documented in this encounter Visit Diagnoses Not on filedocumented in this encounter Care Teams Interactive Media Designer Relationship Specialty Start Date End Date Unknown, Provider, PCP - General 09/20/15 documented as of this encounter
--- OUTSIDE RECORDS SUMMARY | 2024-05-28 08:10 | XMS_ITS | Encounter Summary ---
Author Organization [facility] Address [address] [place] [address] Care Team Providers Care Inside Barrel Lathe Operator Name Role Phone Unknown, Provider Primary Care Provider [phone] Encounter Details Date Type Department Care Team (Late st Contact Info) Description 02/16/2017 Results Only [facility]- PRISM [phone] Octavia Mike MD [phone] [address] Social History Tobacco Use Types [...] Diagnosis Comments PAP TEST- RESULT ONLY Routine 02/16/2017 0:00 EDT documented in this encounter Results * PAP TEST- RESULT ONLY (02/16/2017 0:00 EDT) Pathology Report: CYTOPATHOLOGY REPORT Reports generated via electronic interface contain original data; however they are lacking the format of the original report. Caution should be taken when reading/interpreti ng unformatted reports. Name: ? ABBIE HERNANDEZ ? Accession #: ? [id number] ? : ? 1990 (Age: 26) ??F ?Collect Date: ? 02/16/2017 ? Location: ? [facility] ? Receive Date: ? 02/17/2017 ? Provider: OCTAVIA MIKE MD Copy to: ? Final Report SPECIMEN ADEQUACY ? Satisfactory for Evaluation - transformation zone component present - scant squamous epithelial component - obscuring contamination, possibly lubricant GENERAL CATEGORIZATION ? Negative for Intraepithelial Lesion or Malignancy ?? Last Menstrual Period: 2016 Hormonal/Contracep tive status: Yes: Implanon Specimen/Source: ??Pap Test, Cervix, ThinPrep Imaging System with manual evaluation Document reviewed and electronically signed by: ? MARTA Connell(ASCP) ? Report ??Date: 02/21/2017 13:43 HPV with Pap Test ? Date Ordered: ? 02/21/2017 ? Status: ?? Signed Out ?Date Complete: ? 02/22/2017 ? By: ??System Interface ? Date Reported: ? 02/22/2017 ? Interpretation RESULT: Negative for HPV. No E6 or E7 mRNA is detected from HPV types 16,18,31,33,35, 39,45,51,52,56,58, 59,66, and 68 by criminalist mediated amplification. Comments Document reviewed and electronically signed by: ? System Interface ? Report date: 02/22/2017 By the signature above, the attending physician certifies that he/she has personally conducted a gross and/or microscopic examination of the described specimens and rendered or confirmed the above diagnosis. End of Report [facility] 02/16/2017 02/17/2017 Octavia Mike MD PATHOLOGY ORDERABLES [facility] [address] [place] [address] documented in this encounter Visit Diagnoses Not on filedocumented in this encounter Care Teams Inside Barrel Lathe Operator Relationship Specialty Start Date End Date Unknown, Provider, PCP - General 09/20/15 documented as of this encounter
--- OUTSIDE RECORDS SUMMARY | 2024-05-28 08:10 | XMS_ITS | Encounter Summary ---
Author Organization [facility] Address [facility] [place] [address] Care Team Providers Care Journeyman Tool And Die Maker Name Role Phone Sharon Concepcion Primary Care Provider [phone] Encounter Details Date Type Department Care Team (Late st Contact Info) Description 04/18/2024 Abstract Orthopaedics at [facility] [place] [id number] Kecia Varela LNA Social History Tobacco Use [...] 12:00 PM EDT Hospital Encounter Operating Room [facility] [place] [address] Constanza Douglass MD [facility] [place] [address] 06/03/2024 12:00 PM EDT - 06/03/2024 12:45 PM EDT Surgery Operating Room [facility] [place] [phone] Constanza Douglass MD [facility] [place] [address] COLONOSCOPY, DIAGNOSTIC (WRVU 3.26) Scheduled Procedures Name Priority Associated Diagnoses Date/Ti me COLONOSCOPY, DIAGNOSTIC (WRVU 3.26) Chronic diarrhea Screen for colon cancer Adenoma of colon 06/03/2024 12:00 PM EDT documented as of this encounter Visit Diagnoses Not on filedocumented in this encounter Care Teams Journeyman Tool And Die Maker Relationship Specialty Start Date End Date Sharon Concepcion PA [address] [place] [address] PCP - General Family Medicine 04/01/24 documented as of this encounter
--- OUTSIDE RECORDS SUMMARY | 2024-05-28 08:10 | XMS_ITS | Encounter Summary ---
Author Organization [facility] Address [address] [place] [address] Care Team Providers Care Profiler Hand Name Role Phone Unavailable Primary Care Provider Unavailabl e Encounter Details Date Type Department Care Team (Late st Contact Info) Description 09/24/2007 Results Only [facility] [address] [place] [address] Jimy Ruiz MD [address] [place] [address] [address] [place], [place] [id number] Social History Tobacco Use Types Packs/Day Years Used Date Smoking Tobacco: Never Assessed Sex and Gender Information Value Date Recorded Sex Assigned at Not on file Gender Identity Not on file Sexual Orientation Not on file documented as of this encounter Plan of Treatment Not on file documented as of this encounter Procedures Procedure Name Priority Date/Time Associated Diagnosis Comments CYTOPATHOLOGY Routine 09/24/2007 0:00 EST documented in this encounter Results * CYTOPATHOLOGY (09/24/2007 0:00 EST) Pathology Report: CYTOPATHOLOGY REPORT Reports generated via electronic interface contain original data; however they are lacking the format of the original report. Caution should be taken when reading/interpreti ng unformatted reports. Name: ? ABBIE HERNANDEZ ? Accession #: ? [id number] : ? 1990 (Age: 17) ??F ?Collect Date: ? 09/24/2007 Location: ? [facility] ? Receive Date: ? 09/26/2007 Provider: ?JIMY RUIZ MD Copy to: ? Specimen/Source: ?ThinPrep Pap Test, Cervix/Endocervix, processed on [employer] ThinPrep Imaging System, with manual evaluation Last Menstrual Period: ? 06/26/07 Menstrual/Pregnanc y Status: ? Other: ? Additional clinical information: previous pap WNL HPVA - HPV testing requested if ASC-US on the current ThinPrep Pap test. ? SPECIMEN ADEQUACY ? Satisfactory for Evaluation - transformation zone component present GENERAL CATEGORIZATION ? Negative for Intraepithelial Lesion or Malignancy ? Document reviewed and electronically signed by: ? MARTA Dotson(ASCP)(IAC) ? Report Date: ??10/01/2007 09:38 End of Report [facility] 09/24/2007 09/26/2007 Jimy Ruiz MD PATHOLOGY ORDERABLES Performing Organization Address City/State/[facility] Co de Phone Number [facility] [address] [place] [address] documented in this encounter Visit Diagnoses Not on filedocumented in this encounter
--- OUTSIDE RECORDS SUMMARY | 2024-05-28 08:10 | XMS_ITS | Encounter Summary ---
Author Organization [facility] Address [address] [place] [address] Care Team Providers Care Reclamation Furnace Operator Name Role Phone Unavailable Primary Care Provider Unavailabl e Encounter Details Date Type Department Care Team (Late st Contact Info) Description 04/11/2013 Results Only [facility] Laboratory Services - [facility] ([facility] [address] [place], [place] [id number] Octavia Mike MD [address] [address] Social History Tobacco Use Types [...] Diagnosis Comments PAP TEST- RESULT ONLY Routine 04/11/2013 0:00 EDT documented in this encounter Results * PAP TEST- RESULT ONLY (04/11/2013 0:00 EDT) Pathology Report: CYTOPATHOLOGY REPORT Reports generated via electronic interface contain original data; however they are lacking the format of the original report. Caution should be taken when reading/interpreti ng unformatted reports. Name: ? ABBIE HERNANDEZ ? Accession #: ? [id number] : ? 1990 (Age: 22) ??F ?Collect Date: ? 04/11/2013 Location: ? [facility] ? Receive Date: ? 04/15/2013 Provider: ?OCTAVIA MIKE MD Copy to: ? Specimen/Source: ?Pap Test, Cervix/Endocervix, ThinPrep Imaging System with manual evaluation Last Menstrual Period: ? 03/28/13 Hormonal/Contracep tive Status: ? Oral contraceptives ? SPECIMEN ADEQUACY ? Satisfactory for Evaluation - transformation zone component present GENERAL CATEGORIZATION ? Negative for Intraepithelial Lesion or Malignancy ? Document reviewed and electronically signed by: ? MARTA Hernandez(ASCP) ? Report Date: ??04/18/2013 15:01 End of Report [facility] 04/11/2013 04/15/2013 Octavia Mike MD PATHOLOGY ORDERABLES [facility] [address] [place] [address] documented in this encounter Visit Diagnoses Not on filedocumented in this encounter
--- OUTSIDE RECORDS SUMMARY | 2024-05-28 08:10 | XMS_ITS | Encounter Summary ---
Author Organization [facility] Address [address] [place] [address] Care Team Providers Care Neon Glass Blower Name Role Phone Unknown, Provider Primary Care Provider [phone] Encounter Details Date Type Department Care Team (Late st Contact Info) Description 07/13/2021 Lab Requisition [facility] Pathology & Laboratory Medicine - [address] [address] Anette Melton MD [address] [place] [address] Encounter for other general examination Social History Tobacco Use Types Packs/Day Years Used Date Smoking Tobacco: Never Assessed Sex and Gender Information Value Date Recorded Sex Assigned at Not on file Gender Identity Not on file Sexual Orientation Not on file documented as of this encounter Plan of Treatment Not on file documented as of this encounter Procedures Procedure Name Priority Date/Time Associated Diagnosis Comments SURGICAL PATHOLOGY Today 07/13/2021 10 :00 EDT documented in this encounter Results * SURGICAL PATHOLOGY (07/13/2021 10:00 EDT) Note to Patient The following pathology results have been interpreted by your pathologist and may be available to you before your health provider has had the opportunity to review them. Please allow time for your provider to receive these results and explore management options, if applicable. 07/20/2021 17:14 EDT [facility] Final Diagnosis A. COLON, TRANSVERSE, POLYP, BIOPSY: - Fragments of sessile serrated adenoma. 07/20/2021 17:14 EDT [facility] Attestation There was significant resident/fellow involvement in the diagnostic evaluation of this case. By the signature below, the attending physician certifies that they have personally conducted a gross and/or microscopic examination of the described specimens and rendered or confirmed the above diagnosis. 07/20/2021 17:14 EDT [facility] at 1713 Clinical History Diverticulitis; diverticulosis, colon polyp 07/20/2021 17:14 EDT [facility] Gross Description A. Received in formalin labelled with proper patient identification (initials S, A) and transverse colon polyp is a brown-garcia polyp (0.8 x 0.5 x 0.4 cm). Trisected and entirely submitted in A1. DAKOTA YOU(ASCP) 07/14/2021 8:43 07/20/2021 17:14 EDT [facility] Resident/Nilton w: Kemar Henley DO 07/20/2021 17:14 T [facility] Performing Lab [facility] 07/20/2021 17:14 T [facility] Scanned Images 07/20/2021 17:14 T [facility] Tissue POLYP OF COLON / Unknown 07/13/2021 10:00 EDT 07/14/2021 8:27 EDT Anette Melton MD PATHOLOGY ORDER LIO [facility] [address] [place] [address] documented in this encounter Visit Diagnoses Diagnosis Encounter for other general examination documented in this encounter Care Teams Neon Glass Blower Relationship Specialty Start Date End Date Unknown, Provider, PCP - General 09/20/15 documented as of this encounter
--- OUTSIDE RECORDS SUMMARY | 2024-05-28 08:10 | XMS_ITS | Encounter Summary ---
Author Organization [facility] Address [address] [place] [address] Care Team Providers Care Installation Drafter Name Role Phone Unavailable Primary Care Provider Unavailabl e Encounter Details Date Type Department Care Team (Late st Contact Info) Description 11/29/2006 Results Only [facility] [address] [place] [address] Nery Delgado, HERMANN [address] [place], [place] [id number] Social History Tobacco Use Types Packs/Day Years Used Date Smoking Tobacco: Never Assessed Sex and Gender Information Value Date Recorded Sex Assigned at Not on file Gender Identity Not on file Sexual Orientation Not on file documented as of this encounter Plan of Treatment Not on file documented as of this encounter Procedures Procedure Name Priority Date/Time Associated Diagnosis Comments CYTOPATHOLOGY Routine 11/29/2006 0:00 EST documented in this encounter Results * CYTOPATHOLOGY (11/29/2006 0:00 EST) Pathology Report: CYTOPATHOLOGY REPORT Reports generated via electronic interface contain original data; however they are lacking the format of the original report. Caution should be taken when reading/interpreti ng unformatted reports. Name: ? ABBIE HERNANDEZ ? Accession #: ? [id number] : ? 1990 (Age: 16) ??F ?Collect Date: ? 11/29/2006 Location: ? [facility] ? Receive Date: ? 12/01/2006 Provider: ?NERY DELGADO ANP Copy to: ? Specimen/Source: ?ThinPrep Pap Test, Cervix, processed on [employer] ThinPrep Imaging System, with manual evaluation Last Menstrual Period: ? 11/08/06 Other: ? HPVA - HPV testing requested if ASC-US on the current ThinPrep Pap test. ? SPECIMEN ADEQUACY ? Satisfactory for Evaluation - transformation zone component present GENERAL CATEGORIZATION ? Negative for Intraepithelial Lesion or Malignancy ? Document reviewed and electronically signed by: ? MARTA Montero(ASCP) ? Report Date: ??12/05/2006 08:17 End of Report [facility] 11/29/2006 12/01/2006 Nery MCCRARY PATHOLOGY ORDERABL ES [facility] [address] [place] [address] documented in this encounter Visit Diagnoses Not on filedocumented in this encounter
--- OUTSIDE RECORDS SUMMARY | 2024-05-28 08:10 | XMS_ITS | Encounter Summary ---
Author Organization [facility] [place] [address] Care Team Providers Care Complex Human Resources Manager Name Role Phone Unavailable Primary Care Provider Unavailabl e Encounter Details Date Type Department Care Team (Late st Contact Info) Description 06/02/2008 Ancillary Procedure Radiology Library at [facility] [place] [address] Sharon Concepcion PA [address] [place] [phone] Social History Tobacco Use Types Packs/Day Years Used Date Smoking Tobacco: Never Assessed Sex and Gender Information Value Date Recorded Sex Assigned at Not on file Gender Identity Not on file Sexual Orientation Not on file documented as of this encounter Plan of Treatment Upcoming Encounters Date Type Department Care Team (Latest Contact Info) Description 06/03/2024 12:00 PM EDT Hospital Encounter Operating Room Joanada[address] Man[address] [place] [phone] Constanza Douglass MD [facility] [place] [address] 06/03/2024 12:00 PM EDT - 06/03/2024 12:45 PM EDT Surgery Operating Room [address]ana [address] [place] [id number] Constanza Douglass MD [facility] [place] [address] COLONOSCOPY, DIAGNOSTIC (WRVU 3.26) Scheduled Procedures Name Priority Associated Diagnoses Date/Ti me COLONOSCOPY, DIAGNOSTIC (WRVU 3.26) Chronic diarrhea Screen for colon cancer Adenoma of colon 06/03/2024 12:00 PM EDT documented as of this encounter Procedures Procedure Name Priority Date/Time Associated Diagnosis Comments FILM LIBRARY STORAGE ONLY CT ABDOMEN AND PELVIS Routine 06/02/2008 12:00 AM EDT documented in this encounter Results * Film Library- Storage Only CT Abdomen & Pelvis (06/02/2008 12:00 AM EDT) Narrative [facility] [place] - 04/05/2024 10:33 AM EDT This exam is auto-finalizing. It's purpose is for storage only. Sharon DUNCAN IMMorales FILM LIBRARY ORD ERABLES [place], [place] documented in this encounter Visit Diagnoses Not on filedocumented in this encounter
--- OUTSIDE RECORDS SUMMARY | 2024-05-28 08:10 | XMS_ITS | Encounter Summary ---
Author Organization [facility] Address [address] [place] [address] Care Team Providers Care Maple Sugar Maker Name Role Phone Unavailable Primary Care Provider Unavailabl e Encounter Details Date Type Department Care Team (Late st Contact Info) Description 07/17/2009 Orders Only [facility] Services - [facility] ([facility] [address] [place] [address] Octavia Mike MD [address] [place] [address] [place] [phone] Social History Tobacco Use Types Packs/Day Years Used Date Smoking Tobacco: Never Assessed Sex and Gender Information Value Date Recorded Sex Assigned at Not on file Gender Identity Not on file Sexual Orientation Not on file documented as of this encounter Plan of Treatment Not on file documented as of this encounter Procedures Procedure Name Priority Date/Time Associated Diagnosis Comments CYTOPATHOLOGY Routine 07/17/2009 0:00 EDT documented in this encounter Results * CYTOPATHOLOGY (07/17/2009 0:00 EDT) Pathology Report: CYTOPATHOLOGY REPORT ? Reports generated via electronic interface contain original data; ? however they are lacking the format of the original report. ? Caution should be taken when reading/interpreti ng unformatted reports. ? Name: ? TREVOR, ABBIE ? Accession #: ? [id number] ? : ? 1990 (Age: 19) ??F ?Collect Date: ? 07/17/2009 ? Location: ? [facility] ? Receive Date: ? 07/21/2009 ? Provider: ?OCTAVIA MIKE MD ? Copy to: ? Specimen/Source: ?Pap Test, Cervix/Endocervix, ThinPrep Imaging System ? with manual evaluation ? Last Menstrual Period: ? 8/20/09 ? Other: ? HPVA - HPV testing requested if ASC-US on the current ThinPrep Pap test. ? SPECIMEN ADEQUACY ? Satisfactory for Evaluation ? - transformation zone component present ? GENERAL CATEGORIZATION ? Negative for Intraepithelial Lesion or Malignancy ? Document reviewed and electronically signed by: ? Pauline Aguilar, CT(ASCP)(IAC) ? Report Date: ??07/27/2009 14:47 ? End of Report ? [facility] 07/17/2009 07/21/2009 Octavia Mike MD PATHOLOGY ORDERABLES Performing Organization Address City/State/[facility] Co de Phone Number [facility] [address] [place] [address] documented in this encounter Visit Diagnoses Not on filedocumented in this encounter
[2024-05-28 12:47] LABS: C Diff PCR Negative (Negative)
[2024-05-28 22:32] LABS: Campylobacter PCR Negative (Negative); Salmonella PCR Negative (Negative); Shiga Toxin PCR Negative (Negative); Shigella/Enteroinvasive Ecoli Negative (Negative)
[2024-05-31 13:40] LABS: Helicobacter pylori Ag, Feces Negative (Negative)
== END 2024-05-28 08:07 | disposition home or self-care (01) ==
LOC: LBN 08:06
PROVIDERS: PCP Family Medicine; Visit Provider Physician Assistant Medical
DX: K52.9 Noninfective gastroenteritis and colitis, unspecified (principal)
CPT/HCPCS: 87329; 87338; 87493; 87505; 82710